=== PATIENT | female | born 1955 | race Caucasian/White ===

== ENCOUNTER 2022-09-26 11:51 | Inpatient (IN) ==
[2022-09-26] MEDS ORDERED: ONDANSETRON INJ 2 MG/ML 2 ML VIAL IV STA (13:09)
[2022-09-26] MEDS ORDERED: MoRPHine SULFATE 4 MG/ML 1 ML CARP\\VIAL IV STA (13:09)
--- NOTE | 2022-09-26 13:17 | Emergency Department Note ---
Impression & Plan Back pain ADMIT ED Provider Note HPI: The patient is a 67-year-old female who presents emergency department chief complaint of back pain and right lower extremity weakness and pain. Patient states that this has been a chronic issue for her, patient states that she was here in the ED last week, she received pain medication and felt better, she was ultimately discharged home but she states when her pain medication wore off she again felt fairly severe stabbing pains in the right lower extremity mostly in the right buttocks and right posterior leg. On arrival here to the ED the patient is hemodynamically stable but she is very anxious appearing, she states that the pain today has been "severe". Patient denies any new sensory deficits in lower extremities, denies any urinary incontinence or retention, denies any recent fevers. ROS: - Per HPI Differential Diagnosis: Acute on chronic right lower back pain with radiculopathy, spinal stenosis, cauda equina syndrome, amongst other potential pathologies. *Outpatient medications and allergy history reviewed. *Pertinent external medical records reviewed. PE: General: Alert, anxious appearing HEENT: Normocephalic, trachea midline Eyes: Extraocular eye movement is intact, no scleral erythema Pulmonary: Clear to auscultation bilaterally, no wheezing Cardio: Regular rate and rhythm GI: Abdomen is soft to palpation : No suprapubic tenderness MSK: No evidence of trauma or malformation of the extremities, no edema Skin: No evidence of rash Neuro: Alert, dorsiflexion and plantarflexion intact in right lower extremity 5/5, chronic foot drop noted of the left lower extremity Psychiatric: Cooperative traffic monitor specialist: (As interpreted by myself): - An order was placed for continuous cardiac monitoring - Patient was noted to be in sinus rhythm with a rate of 85 Interventions provided in ED: -IV morphine, IV Zofran Medical Decision Making: Shortly after the patient arrived IV was established and lab work ordered. I did review CT imaging from this past week when the patient was in the ER and this did not show any bony abnormality. Patient was given IV morphine and IV Zofran for symptoms. Lab work shows mild leukopenia 4.36, hemoglobin is normal, platelet count is normal, CMP does not show any critical findings. Patient states that her pain is improved on my reassessment, she does not have any critical neurologic findings in the right lower extremity but states that her pain is getting more severe. She states that this is inhibiting her ability to function at home and she is having difficulty with ambulation. I did recommend MRI imaging however the patient has a spinal stimulator. Initially it was thought that if the patient had her remote to turn off the stimulator she could receive an MRI, patient was able to obtain the remote however when re viewed with MRI her device is not compatible with our MRI machine. Given her ambulatory dysfunction she did require admission to the hospital, I discussed her case with the on-call hospitalist, Dr.'s Delgado, and the patient was placed for admission in stable condition. Patient stated that she would be agreeable for PT / OT and possibly placement to inpatient rehab. Consultants: Hospitalist, Dr. German Disposition discussion held by myself with: Patient and Friend at bedside Diagnosis: 1. Acute on chronic right lower back pain with sciatica 2. Ambulatory dysfunction Disposition: Admission Hang Mckeon DO Emergency Medicine Past Med/Surg History Medical History Chronic back pain Hypertension Surgical History History of lumbar surgery S/P insertion of spinal cord stimulator Social History Smoking Status: Never smoker Preferred Language: Swedish Current Living Situation: Alone current occupational status: retired Feels Safe at Home: Yes Allergies Allergies Allergy/AdvReac Type Severity Reaction Status Date / Time acetaminophen [From Percocet] AdvReac Mild Nausea Verified 09/26/22 13:54 oxycodone [From Percocet] AdvReac Mild Nausea Verified 09/26/22 13:54 Home Meds Home Medications Medication Instructions Recorded Confirmed lorazepam 0.5 mg tablet 0.5 mg PO DAILY PRN ANXIETY 09/26/22 09/26/22 metoprolol succinate 25 mg 25 mg PO DAILY 09/26/22 09/26/22 tablet,extended release 24 hr Previous Rx's Medication Instructions Recorded cyclobenzaprine 10 mg tablet 10 mg PO TID PRN muscle spasm #20 09/22/22 tabs hydrocodone 5 mg-acetaminophen 325 1 - 2 tab PO Q6H PRN pain #15 tabs 09/22/22 mg tablet Results & Data (ED) Vital Signs Vital Signs - 24 hr 09/26/22 11:54 09/26/22 14:24 09/26/22 14:37 Temperature 37.2 C Temperature Source Temporal Artery Scan Pulse Rate 88 86 Pulse Rate [Apical] 81 Pulse Rhythm [Apical] Regular Pulse Strength [Apical] Respiratory Rate 20 18 Respiratory Effort / Characteristics Non-Labored Spontaneous Non-Labored Spontaneous Respiratory Depth Normal Normal Respiratory Pattern Regular Blood Pressure 120/80 Blood Pressure [Right Arm] 143/77 H Blood Pressure Mean 93 Blood Pressure Mean [Right Arm] 99 Blood Pressure Position [Right Arm] Lying Pulse Oximetry 96 93 Oxygen Delivery Method Room Air Room Air Sepsis Recent Fever Within 48 Hours No Sepsis New/Unexplained Change in Mental Status N/A Sepsis Action Taken by Nursing No Action Required 09/26/22 15:27 09/26/22 17:08 Temperature 36.7 C Temperature Source Oral Pulse Rate Pulse Rate [Apical] 80 90 Pulse Rhythm [Apical] Regular Pulse Strength [Apical] Normal Respiratory Rate 16 18 Respiratory Effort / Characteristics Non-Labored Spontaneous Non-Labored Respiratory Depth Normal Normal Respiratory Pattern Regular Blood Pressure Blood Pressure [Right Arm] 115/75 152/86 H Blood Pressure Mean Blood Pressure Mean [Right Arm] 88 108 Blood Pressure Position [Right Arm] Pulse Oximetry 92 94 Oxygen Delivery Method Room Air Room Air Sepsis Recent Fever Within 48 Hours Sepsis New/Unexplained Change in Mental Status Sepsis Action Taken by Nursing Laboratory Data 09/26/22 14:02 09/26/22 14:02 Lab Results 09/26/22 09/26/22 09/26/22 Range/Units 14:02 14:02 14:02 WBC 4.36 L (4.8-10.8) K/ul RBC 5.08 (4.20-5.40) M/uL Hgb 14.6 (12.0-16.0) g/dl Hct 43.9 (37.0-47.0) % MCV 86.4 (80.0-100.0) fL MCH 28.7 (25.0-34.0) pg MCHC 33.3 (32.0-36.0) g/dL RDW Std Deviation 43.7 (36.4-46.3) fL RDW Coeff of Bradley 13.6 (11.5-14.5) % Plt Count 132 (130-400) K/uL MPV 10.7 (9.4-12.4) fL Immature Gran % (Auto) 0.2 % Neut % (Auto) 77.1 % Lymph % (Auto) 15.4 % [place] % (Auto) 7.1 % Eos % (Auto) 0.0 % Baso % (Auto) 0.2 % Neut # (Auto) 3.36 (1.40-6.50) K/uL Lymph # (Auto) 0.67 L (1.2-3.4) K/uL [place] # (Auto) 0.31 (0.11-0.59) K/uL Eos # (Auto) 0.00 (0-0.50) K/uL Baso # (Auto) 0.01 (0-0.2) K/uL Immature Gran # (Auto) 0.01 (0.01-0.20) K/uL ESR 35 H (0-30) mm/hr Sodium 134 L (136-145) mmol/L Potassium 4.1 (3.5-5.1) mmol/L Chloride 101 (98-107) mmol/L Carbon Dioxide 27 (21-32) mmol/L Anion Gap 6 (3-11) BUN 13 (6-23) mg/dl Creatinine 0.93 (0.6-1.2) mg/dl Est Cr Clr Drug Dosing 70.8 ml/min Est GFR ( Amer) 73.2 ml/min Est GFR (Non-Af Amer) 63.1 ml/min BUN/Creatinine Ratio 14.0 (10-20) Glucose 96 (70-99(Fasting)) mg/dl Calcium 9.8 (8.6-10.3) mg/dl Total Bilirubin 0.5 (0.2-1.0) mg/dl AST 38 (13-39) U/L ALT 31 (7-52) U/L Alkaline Phosphatase 46 (34-104) U/L Total Protein 6.8 (6.0-8.3) gm/dl Albumin 3.7 (3.4-5.0) gm/dl Globulin 3.1 (2.5-4.0) gm/dl Albumin/Globulin Ratio 1.2 (0.9-2) Administered Medications Cyclobenzaprine HCl (Cyclobenzaprine Hcl 10 Mg Tab) 10 mg PO TID PRN PRN Reason: muscle spasm Stop: 10/26/22 15:47 Last Admin: 09/26/22 17:10 Dose: 10 mg Documented By: MODESTO Discontinued Medications Lorazepam (Lorazepam 2 Mg/1 Ml Vial) 0.5 mg IV NOW STA Stop: 09/26/22 14:57 Last Admin: 09/26/22 15:24 Dose: 0.5 mg Documented By: PING Morphine Sulfate (Morphine Sulfate 4 Mg/Ml 1 Ml Carp\\Vial) 4 mg IV NOW STA Stop: 09/26/22 13:10 Last Admin: 09/26/22 13:35 Dose: 4 mg Documented By: MADISYN Ondansetron HCl (Ondansetron Inj 2 Mg/Ml 2 Ml Vial) 4 mg IV NOW STA Stop: 09/26/22 13:10 Last Admin: 09/26/22 13:35 Dose: 4 mg Documented By: MADISYN Discharge Plan Visit Data Chief Complaint: Leg Injury/Pain Stated Complaint: LEG PAIN ED Provider: Hang Mckeon Discharge Problem: Back pain Forms Stand Alone Forms: [facility] Prescriptions Prescriptions: No Action cyclobenzaprine 10 mg tablet 10 mg PO TID PRN (Reason: muscle spasm) Qty: 20 0RF hydrocodone-acetaminophen 5-325 mg tablet 1 - 2 tab PO Q6H PRN (Reason: pain) Qty: 15 0RF Rx Instructions: Initial Treatment lorazepam 0.5 mg tablet 0.5 mg PO DAILY PRN (Reason: ANXIETY) metoprolol succinate 25 mg tablet extended release 24 hr 25 mg PO DAILY Referrals Referrals: Uday Schrader MD [Primary Care Provider] -
[2022-09-26 14:19] LABS: Basophils # (auto) 0.01 K/uL (0-0.2); Basophils % (auto) 0.2 %; Hematocrit (blood only) 43.9 % (37.0-47.0); Hemoglobin 14.6 g/dl (12.0-16.0); Immature Granulocytes # (auto) 0.01 K/uL (0.01-0.20); Immature Granulocytes % (auto) 0.2 %; Lymphocytes # (auto) 0.67 K/uL (1.2-3.4); Lymphocytes % (auto) 15.4 %; Mean Corpuscular Hemoglobin 28.7 pg (25.0-34.0); Mean Corpuscular Hgb Conc 33.3 g/dL (32.0-36.0); Mean Corpuscular Volume 86.4 fL (80.0-100.0); Mean Platelet Volume 10.7 fL (9.4-12.4); Monocytes # (auto) 0.31 K/uL (0.11-0.59); Monocytes % (auto) 7.1 %; Neutrophils # (auto) 3.36 K/uL (1.40-6.50); Neutrophils % (auto) 77.1 %; Platelet Count 132 K/uL (130-400); RDW Coefficient of Variation 13.6 % (11.5-14.5); RDW Standard Deviation 43.7 fL (36.4-46.3); Red Blood Count 5.08 M/uL (4.20-5.40); White Blood Count 4.36 K/ul (4.8-10.8)
[2022-09-26 14:41] LABS: Albumin Globulin Ratio 1.2 (0.9-2); Albumin Level 3.7 gm/dl (3.4-5.0); Bilirubin,Total 0.5 mg/dl (0.2-1.0); Calcium 9.8 mg/dl (8.6-10.3); Creatinine Clr Calc Pharmacy 70.8 ml/min; Est GFR (African American) 73.2 ml/min; Est GFR (Non-African American) 63.1 ml/min; Globulin 3.1 gm/dl (2.5-4.0); Potassium 4.1 mmol/L (3.5-5.1); Total Protein 6.8 gm/dl (6.0-8.3)
[2022-09-26] MEDS ORDERED: LORazepam 2 MG/1 ML VIAL IV STA (14:56)
[2022-09-26] MEDS ORDERED: LORazepam 0.5 MG TAB PO PRN (15:48)
[2022-09-26] MEDS ORDERED: POLYETHYLENE (MIRALAX) 17 GM PACK PO PRN (15:50)
--- NOTE | 2022-09-26 15:53 | History & Physical Report ---
Date of Service September 26, 2022 Assessment & Plan (1) Chronic back pain: Plan: 67 yo female with acute exacerbation of chornic back pain. No trauma. Patient has spinal cord stimulator, not compatible with MRI> CT back spine shows lumbar spine is has severe stenosis Pain is radiating down her legs. consult ortho spine for further input. Patient had one elevated temperature, will obtain cultures and inflammatory markers (2) Chronic radicular low back pain: Plan: as above (3) Hypertension: Plan: resume home meds Plan dvt: lovenox History of Present Illness Chief Complaint: back pain Primary Care Provider: Uday Schrader MD 67 yo female with PMH of Hypertension, reports having multiple lumbar spine surgeries in the past. She reports to the ED with a 1 week history of bilateral leg pain, but she reports her pain is mainly on the right side and goes to her foot. She denies any recent trauma and the pain began while she was sitting in a chair. Pain is sharp,. She has had pain like this in the past, but she reports she has never had this last this long. Usually this pain subsides within a day or two. Patient has had 2 earlier ER visit prior to this hospital bed. She reports she also has had 2 falls within this past year. She had a spinal cord stimulator implanted years ago in [facility]. Allergies Allergy/AdvReac Type Severity Reaction Status Date / Time acetaminophen [From Percocet] AdvReac Mild Nausea Verified 09/26/22 13:54 oxycodone [From Percocet] AdvReac Mild Nausea Verified 09/26/22 13:54 Home Medications Medication Instructions Recorded Confirmed Type cyclobenzaprine 10 mg tablet 10 mg PO TID PRN muscle spasm #20 09/22/22 09/26/22 Rx tabs hydrocodone 5 mg-acetaminophen 325 1 - 2 tab PO Q6H PRN pain #15 tabs 09/22/22 09/26/22 Rx mg tablet lorazepam 0.5 mg tablet 0.5 mg PO DAILY PRN ANXIETY 09/26/22 09/26/22 History metoprolol succinate 25 mg 25 mg PO DAILY 09/26/22 09/26/22 History tablet,extended release 24 hr Past Med/Surg History Medical History Chronic back pain Hypertension Surgical History History of lumbar surgery S/P insertion of spinal cord stimulator Social History Smoking Status: Never smoker Hx Alcohol Use: Yes Alcohol type: hard liquor Hx Substance Use: No Preferred Language: Libyan Communication Ability: Effective Lighting Fixture Installer Required: No Beliefs That Will Affect Care: None Current Living Situation: Alone current occupational status: retired Feels Safe at Home: Yes Safety Concerns: Feels Safe At This Time Assistive Devices: Cane and Glasses Review of Systems Constitutional: no fever and no body aches Eyes: no blind spots Ear, Nose, Mouth, Throat: no ear pain and no tinnitus Respiratory: no cough Cardiovascular: no chest pain Gastrointestinal: no abdominal pain and no early satiety Genitourinary: no dysuria Musculoskeletal: + back pain Integumentary: no rash Neurologic: no gait abnormality Psychiatric: no behavioral changes Endocrine: no fatigue Hematologic / Lymphatic: no easy bleeding Allergy / Immunological: no GI upset with certain foods Physical Exam Constitutional: WD/WN, vitals as above Eyes: PERRL, conjunctivae normal, anicteric sclerae ENMT: external ear and nose normal, oropharynx normal Neck: trachea midline, no thyromegaly Respiratory: normal respiratory effort, lungs clear to auscultation Cardiovascular: RRR, no murmur, no edema Gastrointestinal (Abdomen): normal bowel sounds, soft, nontender, no hepatosplenomegaly Musculoskeletal: no cyanosis or clubbing, extremities motor strength 5/5 Skin: no rashes, warm and dry Neurologic: PERRL, EOMI, accommodation nl, no face palsy, no dysarthria Psychiatric: A+Ox3, euthymic affect Lymphatic: no cervical or axillary lymphadenopathy Results & Data Results & Data Vital Signs (Past 12 Hours) Vital Signs Temp Pulse Pulse Resp BP BP Pulse Ox 09/26/22 15:27 36.7 C 80 16 115/75 92 09/26/22 14:37 86 09/26/22 14:24 81 18 143/77 H 93 09/26/22 11:54 37.2 C 88 20 120/80 96 O2 Del Method 09/26/22 15:27 Room Air 09/26/22 14:37 09/26/22 14:24 Room Air 09/26/22 11:54 Room Air PG Care Time/CCT Total # of Minutes Spent Total Time Spent with Patient: Total time spent is greater than 50% in coordination of care (as documented) at patient's floor/unit and/or counseling patient: Coding Level of Care Code 02685 INT INP/OBS CARE 3/75MIN Diagnoses Chronic back pain M54.9; G89.29 Chronic radicular low back pain M54.16; G89.29 Hypertension I10
[2022-09-26] MEDS: CYCLOBENZAPRINE HCL 10 MG TAB PO PRN (17:10)
[2022-09-26] MEDS: ENOXAPARIN INJ 40 MG/0.4 ML SYR SQ SCH (17:41)
[2022-09-26] MEDS: ACETAMINOPHEN 325 MG TAB PO SCH ×2 (17:41→23:03)
[2022-09-26 17:42] LABS: Appearance Urine Cloudy (Clear); Bacteria Urine Automated Negative (Negative); Bilirubin Urine Negative (Negative); Blood Urine Negative (Negative); Color Urine Dark Yellow; Epithelial Cell Urine Auto >30 /lpf (0-5); Glucose Urine UA Negative (Negative); Ketones Urine 2+ (Negative); Leukocyte Esterase Urine Negative (Negative); Nitrite Urine Negative (Negative); Protein Urine 1+ (Negative); Specific Gravity Urine 1.021 (1.000-1.030); Urobilinogen Urine Negative (Negative); WBC Urine Automated >30 /hpf (0-5); pH Urine 5.5 (4.5-7.5)
[2022-09-26 17:53] LABS: RBC Urine Automated 0-4 /hpf (0-4)
[2022-09-26 19:46] LABS: C Reactive Protein 3.23 mg/dl (0-0.5)
[2022-09-26] MEDS: HYDROCODONE/ACETAMOPHEN 5/325MG TAB PO PRN (23:03)
[2022-09-27] MEDS: ACETAMINOPHEN 325 MG TAB PO SCH ×4 (05:09→19:32)
[2022-09-27] MEDS: METOPROLOL SUCC 25MG EXT REL TAB PO SCH (08:21)
--- NOTE | 2022-09-27 10:15 | Orthopedic Consultation ---
Date of Consultation September 27, 2022 Assessment & Plan (1) Chronic radicular low back pain: Assessment bilateral leg pain. Plan at this time she is unable to have an MRI with the current spinal cord stimulator placed. I would obtain basic x-rays to assess alignment. We will discuss possible CT myelogram for further anatomic detail regarding the neural structures of the lumbar spine. We will also consider consultation with [employer] for reprogramming of her stimulator. History of Present Illness Reason for Consultation: Bilateral leg pain Attending Physician: Kieran German History of Present Illness This is a 59-year-old female presents to the emergency room with a week of significant bilateral leg pain right greater than left. She states it begins in the bilateral thighs extends down the leg into her feet. She has a history of undergoing 3 lumbar surgeries the last of which was in 2007. She was told she was no longer a surgical candidate after this procedure. Gender went placement of a dorsal column stimulator approximately 3 years ago. She states she gets intermittent limited relief from this. It is a [employer]. She is unable to have an MRI secondary to this stimulator. She does use a cane to ambulate. She lives alone. She denies any loss of bowel or bladder function. She has had a few falls secondary to leg weakness. Allergies Allergy/AdvReac Type Severity Reaction Status Date / Time acetaminophen [From Percocet] AdvReac Mild Nausea Verified 09/26/22 13:54 oxycodone [From Percocet] AdvReac Mild Nausea Verified 09/26/22 13:54 Home Medications Medication Instructions Recorded Confirmed Type cyclobenzaprine 10 mg tablet 10 mg PO TID PRN muscle spasm #20 09/22/22 09/26/22 Rx tabs hydrocodone 5 mg-acetaminophen 325 1 - 2 tab PO Q6H PRN pain #15 tabs 09/22/22 09/26/22 Rx mg tablet lorazepam 0.5 mg tablet 0.5 mg PO DAILY PRN ANXIETY 09/26/22 09/26/22 History metoprolol succinate 25 mg 25 mg PO DAILY 09/26/22 09/26/22 History tablet,extended release 24 hr Patient History Medical History Chronic back pain Hypertension Surgical History History of lumbar surgery S/P insertion of spinal cord stimulator Social History Smoking Status: Never smoker Hx Alcohol Use: Yes Alcohol type: hard liquor Hx Substance Use: No Preferred Language: Togolese Corporate Travel Counselor Required: No Beliefs That Will Affect Care: None Current Living Situation: Alone current occupational status: retired Feels Safe at Home: Yes Safety Concerns: Feels Safe At This Time Assistive Devices: Cane Physical Exam Physical Exam: On exam she is seen but bed. She is cooperative. She exhibits reasonable plus 5 out of 5 plantarflexion dorsiflexion quadriceps on the right. She is an established foot drop on the left but quadriceps are functional. Sensory is symmetric and intact. Deep tendon reflexes diminished. No tension signs. Negative logroll. Results & Data Vital Signs (Past 12 Hours) Vital Signs Temp Pulse Resp BP Pulse Ox O2 Del Method 09/27/22 08:03 37.3 C 74 18 110/74 91 Room Air
[2022-09-27] MEDS: HYDROCODONE/ACETAMOPHEN 5/325MG TAB PO PRN (11:42)
--- NOTE | 2022-09-27 11:50 | XRay Report ---
XR thoracic spine 3V routine CLINICAL HISTORY: back pain TECHNIQUE: 3 views of the thoracic spine were obtained. Comparison: None available at the time of this dictation. FINDINGS: Spinal stimulator is seen. Degenerative changes are seen in the thoracic spine. Alignment appears unr emarkable. Prevertebral soft tissues are within normal limits. IMPRESSION: Degenerative changes as above without acute fracture or subluxation. ACT 112: Negative or not required by law. Electronically signed by: Pedro Lombardi M.D. 09/27/2022 11:49 AM
--- NOTE | 2022-09-27 11:51 | XRay Report ---
LUMBAR SPINE 7 views with flexion and extension HISTORY: Back pain. COMPARISON: Lumbar spine CT 09/22/2022. FINDINGS: There is no fracture. No subluxation. The visualized sacrum is intact. The L3-L4 and L4-L5 disc spaces are narrowed and likely partially fused. Suggestion of prior laminectomy at these levels . Mild disc space narrowing at L5-S1. Straightening of the lumbar spine. Alignment remains intact thr oughout flexion and extension. Partially visualized spinal stimulator leads appear intact. IMPRESSION: 1. No fracture or subluxation within the lumbar spine. 2. The alignment remains intact throughout flexion and extension. 3. Postoperative and degenerative changes as described above. ACT 112: Negative or not required by law. Electronically signed by: Tyron Gaspar M.D. 09/27/2022 11:50 AM
[2022-09-27] MEDS: MoRPHine SULFATE 2 MG/ML CARP IV PRN ×2 (15:09→20:55)
[2022-09-27] MEDS: ENOXAPARIN INJ 40 MG/0.4 ML SYR SQ SCH (15:09)
[2022-09-27] MEDS ORDERED: MoRPHine SULFATE 4 MG/ML 1 ML CARP\\VIAL IV STA (17:12)
[2022-09-27] MEDS: CYCLOBENZAPRINE HCL 10 MG TAB PO PRN (19:33)
[2022-09-27] MEDS: oxyCODONE HCL 10 MG TABCR (OxyCONTIN) PO SCH (20:07)
--- NOTE | 2022-09-27 22:34 | Hospitalist Progress Note ---
Date of Service September 27, 2022 Assessment & Plan (1) Chronic back pain: Plan: 67 yo female with acute exacerbation of chornic back pain. No trauma. PAtient has been afebrile today. Patient has spinal cord stimulator, not compatible with MRI> CT back spine shows lumbar spine is has severe stenosis Pain is radiating down her legs. consult ortho spine: ordered repeat x ray of spine. WIll monitor. ordered acetaminophen scheduled and ordered oxycontin extended release. (2) Chronic radicular low back pain: Plan: as above (3) Hypertension: Plan: resumed home meds. BP at goal Plan DVT: lovenox Admission and Anticipated Discharge Date Admission Date: September 26, 2022 Subjective Patient reports worsening back pain. Review of Systems Review of Systems: All systems reviewed & are unremarkable except as noted in HPI & below Physical Exam Constitutional: WD/WN, vitals as above Eyes: PERRL, conjunctivae normal, anicteric sclerae ENMT: external ear and nose normal, oropharynx normal Neck: trachea midline, no thyromegaly Respiratory: normal respiratory effort, lungs clear to auscultation Cardiovascular: RRR, no murmur, no edema Gastrointestinal (Abdomen): normal bowel sounds, soft, nontender, no hepatosplenomegaly Musculoskeletal: no cyanosis or clubbing, extremities motor strength 5/5 Skin: no rashes, warm and dry Neurologic: PERRL, EOMI, accommodation nl, no face palsy, no dysarthria Psychiatric: A+Ox3, euthymic affect Lymphatic: no cervical or axillary lymphadenopathy Results & Data Results & Data Vital Signs (Past 12 Hours) Vital Signs Temp Pulse Pulse Resp BP Pulse Ox O2 Del Method 09/27/22 20:52 37.5 C 84 18 116/75 94 Room Air 09/27/22 16:04 37.6 C 77 19 102/69 94 Room Air PG Care Time/CCT Total # of Minutes Spent Total Time Spent with Patient: Total time spent is greater than 50% in coordination of care (as documented) at patient's floor/unit and/or counseling patient: Coding Level of Care Code 86245 SUB INP/OBS CARE 2/35MIN Diagnoses Chronic back pain M54.9; G89.29 Chronic radicular low back pain M54.16; G89.29 Hypertension I10
[2022-09-28] MEDS: oxyCODONE HCL 10 MG TABCR (OxyCONTIN) PO SCH ×2 (06:28→20:44)
[2022-09-28] MEDS: METOPROLOL SUCC 25MG EXT REL TAB PO SCH ×2 (08:27→11:44)
[2022-09-28] MEDS: ACETAMINOPHEN 325 MG TAB PO SCH ×4 (08:27→20:44)
--- NOTE | 2022-09-28 08:27 | Orthopedic Progress Note ---
Date of Service September 28, 2022 Assessment & Plan (1) Chronic radicular low back pain: Plan: At this time I have discussed with her an evaluation with the [employer] spinal cord stimulator rep. He has been notified of her presence and will try to arrange time to see her while she is in the hospital. In light of her decline I am also going to move forward with a CT myelogram of the lumbar spine. We will make further conditions after review of the scans. I will be out of town for the next 5 days. Admission and Anticipated Discharge Date Admission Date: September 26, 2022 Subjective Patient continues to complaining of significant severe bilateral leg pain. She states she is ambulating to the bathroom on her own. Physical Exam Physical Exam: Patient is in obvious distress. Her neurologic exam is essentially unchanged. Results & Data Vital Signs (Past 12 Hours) Vital Signs Temp Pulse Resp BP Pulse Ox O2 Del Method 09/28/22 07:44 38.2 C H 84 18 110/69 93 Room Air 09/27/22 20:52 37.5 C 84 18 116/75 94 Room Air
[2022-09-28] MEDS: MoRPHine SULFATE 2 MG/ML CARP IV PRN ×2 (08:42→13:12)
[2022-09-28 10:22] LABS: Basophils # (auto) 0.01 K/uL (0-0.2); Basophils % (auto) 0.2 %; Hematocrit (blood only) 43.1 % (37.0-47.0); Hemoglobin 14.3 g/dl (12.0-16.0); Immature Granulocytes # (auto) 0.02 K/uL (0.01-0.20); Immature Granulocytes % (auto) 0.4 %; Lymphocytes # (auto) 0.81 K/uL (1.2-3.4); Lymphocytes % (auto) 15.7 %; Mean Corpuscular Hemoglobin 28.8 pg (25.0-34.0); Mean Corpuscular Hgb Conc 33.2 g/dL (32.0-36.0); Mean Corpuscular Volume 86.7 fL (80.0-100.0); Mean Platelet Volume 10.8 fL (9.4-12.4); Monocytes # (auto) 0.28 K/uL (0.11-0.59); Monocytes % (auto) 5.4 %; Neutrophils # (auto) 4.05 K/uL (1.40-6.50); Neutrophils % (auto) 78.3 %; Platelet Count 138 K/uL (130-400); RDW Coefficient of Variation 13.2 % (11.5-14.5); RDW Standard Deviation 41.5 fL (36.4-46.3); Red Blood Count 4.97 M/uL (4.20-5.40); White Blood Count 5.17 K/ul (4.8-10.8)
[2022-09-28 11:08] LABS: Albumin Globulin Ratio 1.3 (0.9-2); Albumin Level 3.8 gm/dl (3.4-5.0); BUN Creatinine Ratio 16.9 (10-20); Bilirubin,Total 0.5 mg/dl (0.2-1.0); C Reactive Protein 5.94 mg/dl (0-0.5); Calcium 9.5 mg/dl (8.6-10.3); Est GFR (African American) 77.2 ml/min; Est GFR (Non-African American) 66.6 ml/min; Potassium 3.7 mmol/L (3.5-5.1); Total Protein 6.8 gm/dl (6.0-8.3)
[2022-09-28 11:22] LABS: Adenovirus PCR Not Detected (NotDetected); Bordetella parapertussis PCR Not Detected (NotDetected); Bordetella pertussis PCR Not Detected (NotDetected); Chlamydia pneumoniae PCR Not Detected (NotDetected); Coronavirus 229E PCR Not Detected (NotDetected); Coronavirus HKU1 PCR Not Detected (NotDetected); Coronavirus NL63 PCR Not Detected (NotDetected); Coronavirus OC43PCR Not Detected (NotDetected); Human Metapneumovirus PCR Not Detected (NotDetected); Influenza A PCR Not Detected (NotDetected); Influenza B PCR Not Detected (NotDetected); Mycoplasma pneumoniae PCR Not Detected (NotDetected); Parainfluenza Virus 1 PCR Not Detected (NotDetected); Parainfluenza Virus 2 PCR Not Detected (NotDetected); Parainfluenza Virus 3 PCR Not Detected (NotDetected); Parainfluenza Virus 4 PCR Not Detected (NotDetected); Respiratory Syncytial VirusPCR Not Detected (NotDetected); Rhinovirus/Enterovirus PCR Not Detected (NotDetected)
[2022-09-28] MEDS: DOCUSATE SODIUM/SENNA 50/8.6MG TAB PO SCH (11:43)
--- NOTE | 2022-09-28 11:47 | Hospitalist Progress Note ---
Date of Service September 28, 2022 Assessment & Plan (1) Chronic back pain: Plan: 67 yo female with acute exacerbation of chronic back pain. No trauma, pain started when patient was watching TV on 09/19/22 Patient reports pain is better controlled on this new pain regimen: oxycontin 10 mg PO BID, continue acetaminophen 650 mg PO QID Patient has spinal cord stimulator, not compatible with MRI CT back spine shows lumbar spine is has severe stenosis Patient has a spinal cord stimuator, [employer] is aware and will see her Pain is radiating down her legs. consult ortho spine: awaiting myelogram Falls at home could be explained by COVID. (2) Chronic radicular low back pain: Plan: as above (3) Hypertension: Plan: resumed home meds. BP at goal (4) COVID-19: Plan: Patient with COVID 19. Diagnosed on 09/28 BIOFIRE due to elevated crp, negative procal and fevers. will monitor. no need for dexamethasone. Plan DVT: lovenox Ordered PT/OT OOB to chair Admission and Anticipated Discharge Date Admission Date: September 26, 2022 Subjective Patient reports her pain is slightly better controlled with the new pain regimen. Patient states she has not had a BM today. Patient denies any cough or general malaise. Review of Systems Review of Systems: All systems reviewed & are unremarkable except as noted in HPI & below Physical Exam Constitutional: WD/WN, vitals as above Eyes: PERRL, conjunctivae normal, anicteric sclerae ENMT: external ear and nose normal, oropharynx normal Neck: trachea midline, no thyromegaly Respiratory: normal respiratory effort, lungs clear to auscultation Cardiovascular: RRR, no murmur, no edema Gastrointestinal (Abdomen): normal bowel sounds, soft, nontender, no hepatosplenomegaly Musculoskeletal: no cyanosis or clubbing, extremities motor strength 5/5 Skin: no rashes, warm and dry Neurologic: PERRL, EOMI, accommodation nl, no face palsy, no dysarthria Psychiatric: A+Ox3, euthymic affect Lymphatic: no cervical or axillary lymphadenopathy Results & Data Results & Data Vital Signs (Past 12 Hours) Vital Signs Temp Pulse Resp BP Pulse Ox O2 Del Method 09/28/22 07:44 38.2 C H 84 18 110/69 93 Room Air PG Care Time/CCT Total # of Minutes Spent Total Time Spent with Patient: Total time spent is greater than 50% in coordination of care (as documented) at patient's floor/unit and/or counseling patient: Coding Level of Care Code 82599 SUB INP/OBS CARE 3/50MIN Diagnoses Chronic back pain M54.9; G89.29 Chronic radicular low back pain M54.16; G89.29 Hypertension I10 COVID-19 U07.1
[2022-09-28 12:14] LABS: Coronavirus CoV-2 (COVID19)PCR DETECTED (NotDetected)
[2022-09-28] MEDS: POLYETHYLENE (MIRALAX) 17 GM PACK PO SCH ×2 (13:12→20:45)
--- NOTE | 2022-09-28 13:19 | XRay Report ---
XR chest 2V PA/lateral HISTORY: fever COMPARISON: None. FINDINGS: No pneumothorax. No pleural effusions. Spinal stimulator leads are noted. Small patchy left basilar densities. There is mild central pulmonary vascular congestion without overt edema. The hear t is normal in size. There is increased density overlying the right hilum. This is not confirmed on t he lateral view. IMPRESSION: 1. Small patchy density left lung base which may represent atelectasis or pneumonia. 2. Increased density overlying the right hilum. This is indeterminate. Follow-up chest CT recommended for further evaluation. 3. Mild central pulmonary vascular congestion without overt edema. ACT 112: Negative or not required by law. Electronically signed by: Tyron Gaspar M.D. 09/28/2022 1:18 PM
[2022-09-28 16:26] LABS: Appearance Urine Cloudy (Clear); Bacteria Urine Automated Negative (Negative); Bilirubin Urine Negative (Negative); Blood Urine Negative (Negative); Color Urine Dark Yellow; Epithelial Cell Urine Auto >30 /lpf (0-5); Glucose Urine UA Negative (Negative); Ketones Urine 1+ (Negative); Leukocyte Esterase Urine Negative (Negative); Nitrite Urine Negative (Negative); Protein Urine 1+ (Negative); Specific Gravity Urine 1.025 (1.000-1.030); Urobilinogen Urine Negative (Negative); pH Urine 5.5 (4.5-7.5)
[2022-09-29] MEDS: ONDANSETRON INJ 2 MG/ML 2 ML VIAL IV PRN ×2 (05:46→16:48)
[2022-09-29] MEDS: METOPROLOL SUCC 25MG EXT REL TAB PO SCH (08:02)
[2022-09-29] MEDS: POLYETHYLENE (MIRALAX) 17 GM PACK PO SCH ×2 (08:02→20:36)
[2022-09-29] MEDS: ACETAMINOPHEN 325 MG TAB PO SCH ×4 (08:02→20:35)
[2022-09-29] MEDS: DOCUSATE SODIUM/SENNA 50/8.6MG TAB PO SCH (08:02)
--- NOTE | 2022-09-29 08:27 | Hospitalist Progress Note ---
Date of Service September 29, 2022 Assessment & Plan (1) Chronic back pain: Plan: 67 yo female with acute exacerbation of chronic back pain. No trauma, pain started when patient was watching TV on 09/19/22 Patient reports pain is better controlled on this new pain regimen: oxycontin 10 mg PO BID, continue acetaminophen 650 mg PO QID Patient has spinal cord stimulator, not compatible with MRI CT back spine shows lumbar spine has severe stenosis Patient has a spinal cord stimulator, [place] is aware and will see her Pain is radiating down her legs. consult ortho spine: ordered myelogram, interpretation by radiology shows degenerative and postoperative changes with no significant central canal stenosis with multilevel neuroforaminal narrowing. Little pain control consideration of pain management and await orthopedics final input Falls at home could be explained by COVID. (2) COVID-19: Plan: Patient with COVID 19., possible metabolic encephalopathy affecting strength and leading to falls not hypoxic but low grade temperatures Diagnosed on 09/28 BIOFIRE due to elevated crp, negative procal does not qualify for dexamethasone. (3) Hypertension: Plan: resumed home metoprolol BP at goal Plan DVT: lovenox Ordered PT/OT OOB to chair Admission and Anticipated Discharge Date Admission Date: September 26, 2022 Subjective pt still with pain, wants to limit opiates, pain is similar to previous, if surgical intervention is needed wants to stay here if possible Physical Exam Physical Exam: patient is lying flat after CT myelogram. She has no neurological deficits noted to lower extremities and while laying flat her pain is much improved. Patient's pulm exam is clear anteriorly and she is is displaying no signs of respiratory distress Results & Data Results & Data Vital Signs (Past 12 Hours) Vital Signs Temp Pulse Resp BP Pulse Ox O2 Del Method 09/29/22 07:50 100.0 F H 90 18 126/80 92 Room Air 09/28/22 20:44 Room Air PG Care Time/CCT Total # of Minutes Spent Total Time Spent with Patient: Total time spent is greater than 50% in coordination of care (as documented) at patient's floor/unit and/or counseling patient: Coding Level of Care Code 11104 SUB INP/OBS CARE 2/35MIN Diagnoses Chronic back pain M54.9; G89.29 COVID-19 U07.1 Hypertension I10
[2022-09-29] MEDS: oxyCODONE HCL 10 MG TABCR (OxyCONTIN) PO SCH ×2 (09:16→20:18)
[2022-09-29] MEDS: MoRPHine SULFATE 2 MG/ML CARP IV PRN (10:48)
--- NOTE | 2022-09-29 13:33 | Fluoroscopy Report ---
Lumbar myelogram injection INDICATION: Back pain with radiculopathy PROCEDURE: Procedure and risks were explained. Informed consent was obtained. A final timeout was com pleted. The patient was placed prone on the fluoroscopic exam table. The lower lumbar region was prep ped and draped in sterile fashion. 1% lidocaine was utilized for skin anesthesia. Utilizing fluoroscopic guidance, a 22-gauge spinal needle was advanced into the intrathecal space at the L2-3 disc space level. Approximately 12 mL of Isovue-M 200 was injected. Fluoroscopic spot images were obtained. The needle was removed and Band-Aid applied. The patient tolerated the procedure well . She will be transferred to CT for additional imaging. Total fluoroscopy time 1.3 minutes. DAP is 31.7 mcGy/m2. IMPRESSION: Lumbar myelogram injection as above. Please refer to CT report for additional information . Performed, dictated, and signed by Garcia Toledo PA-C; to be co-signed by Dr. Pedro Lombardi. Electronically signed by: Pedro Lombardi M.D. 09/30/2022 7:14 AM
--- NOTE | 2022-09-29 13:36 | CT Scan Report ---
CT lumbar post myelogram CT DOSE: 1188.69 mGy.cm CLINICAL HISTORY: 67 years-old Female with leg pain. Chronic low back pain. TECHNIQUE: Multiple axial CT images of the lumbar spine were obtained with the use of intrathecal co ntrast. Coronal and sagittal reformats were generated from the axial data set and submitted for revi ew. A dose lowering technique was utilized adhering to the principles of ALARA. COMPARISON: 09/22/2022. FINDINGS: There are 5 lumbar-type vertebral bodies segments present. The vertebral body heights appear well ma intained. No evidence of acute fracture or subluxation is appreciated. Cardiomegaly. A spinal stimul ator device is noted at the distal tip of the leads overlying the mid thoracic spine. The imaged intr a-abdominal structures are unremarkable. Atherosclerosis of the abdominal aorta. Bilateral renal sinu s cysts. No paravertebral edema. A few locules of epidural and intrathecal gas is noted at the L2-L3 level, likely postprocedural. Postoperative changes from prior posterior decompression at L3-L4. Carley neralized appearance of the bones. Conus medullaris terminates at L1. Sacral Tarlov cysts are noted. T11-12: Mild facet arthrosis. No evidence of disc bulge or central canal stenosis is seen. The neur al foramina appear patent bilaterally. T12-L1: Mild facet arthrosis. No evidence of disc bulge or central canal stenosis is seen. The neur al foramina appear patent bilaterally. L1-L2: Mild facet arthrosis. No evidence of disc bulge or central canal stenosis is seen. The neura l foramina appear patent bilaterally. L2-L3: Mild facet arthrosis with ligamentum flavum thickening and mild spondylitic spurring. Small p osterior annular disc bulge with annular fissure. Mild inferior bilateral foraminal narrowing. The ce ntral canal is patent. L3-L4: Severe intervertebral disc space narrowing with dhwi-gq-bebzovmf spondylitic spurring, ligame ntum flavum thickening with moderate facet arthrosis. Prior posterior decompression. Small posterior annular disc bulge. The central canal is patent. Mild right with jkpl-te-keuixzmn left foraminal narr owing. L4-L5: Severe intervertebral disc space narrowing with mamr-zs-xikoryrc spondylitic spurring, ligame ntum flavum thickening with nogsttct-ig-yhjyak facet arthrosis. Small posterior disc osteophyte compl ex. Flattening of the ventral thecal sac without significant central canal stenosis. Mild bilateral f oraminal narrowing, left greater than right. L5-S1: Mild intervertebral disc space narrowing with spondylotic spurring. Chondrocalcinosis of the disc space. Ligamentum flavum thickening with severe facet arthrosis. Small central/left paracentral disc osteophyte complex measuring up to 1.6 cm transversely. There is abutment without significant di splacement of the left S1 nerve root. Moderate left lateral recess narrowing. Mild epidural lipomatos is. No significant central canal stenosis. Infm-fw-nwpkhwjs bilateral foraminal narrowing. IMPRESSION: 1. No acute fracture or subluxation. 2. Degenerative and postoperative changes as above. 3. No significant central canal stenosis. 4. Multilevel neural foraminal narrowing. 5. Small Tarlov cysts of the sacrum. ACT 112: Negative or not required by law. The above report was generated using voice recognition software. It may contain grammatical, syntax o r spelling errors. Dictated: 09/29/2022 1:04 PM Transcribed: 09/29/2022 1:23 PM Evan [id number] [email or web address] Electronically signed by: Margarito Hill M.D. 09/29/2022 1:34 PM
[2022-09-29] MEDS ORDERED: predniSONE 20 MG TAB PO STA (15:33)
[2022-09-30] MEDS: oxyCODONE HCL 10 MG TABCR (OxyCONTIN) PO SCH ×2 (06:43→19:21)
[2022-09-30 07:22] LABS: Hematocrit (blood only) 42.7 % (37.0-47.0); Hemoglobin 14.4 g/dl (12.0-16.0); Mean Corpuscular Hemoglobin 28.5 pg (25.0-34.0); Mean Corpuscular Hgb Conc 33.7 g/dL (32.0-36.0); Mean Corpuscular Volume 84.4 fL (80.0-100.0); Mean Platelet Volume 10.4 fL (9.4-12.4); Platelet Count 170 K/uL (130-400); RDW Coefficient of Variation 13.2 % (11.5-14.5); RDW Standard Deviation 40.8 fL (36.4-46.3); Red Blood Count 5.06 M/uL (4.20-5.40); White Blood Count 5.57 K/ul (4.8-10.8)
[2022-09-30 08:37] LABS: BUN Creatinine Ratio 18.2 (10-20); C Reactive Protein 9.25 mg/dl (0-0.5); Calcium 9.9 mg/dl (8.6-10.3); Creatinine Clr Calc Pharmacy 99.8 ml/min; Est GFR (African American) 105.2 ml/min; Est GFR (Non-African American) 90.8 ml/min; Potassium 3.8 mmol/L (3.5-5.1)
[2022-09-30] MEDS: METOPROLOL SUCC 25MG EXT REL TAB PO SCH (08:51)
[2022-09-30] MEDS: ACETAMINOPHEN 325 MG TAB PO SCH ×4 (08:51→20:07)
[2022-09-30] MEDS: LIDOCAINE 5% 1 PATCH TD SCH (08:52)
[2022-09-30] MEDS: POLYETHYLENE (MIRALAX) 17 GM PACK PO SCH ×2 (08:52→19:25)
[2022-09-30] MEDS: DOCUSATE SODIUM/SENNA 50/8.6MG TAB PO SCH (09:04)
--- NOTE | 2022-09-30 09:28 | Hospitalist Progress Note ---
Date of Service September 30, 2022 Assessment & Plan (1) Chronic back pain: Plan: 67 yo female with acute exacerbation of chronic back pain. No trauma, pain started when patient was watching TV on 09/19/22 Patient reports pain is better controlled on this new pain regimen: oxycontin 10 mg PO BID, continue acetaminophen 650 mg PO QID Patient has spinal cord stimulator, not compatible with MRI CT back spine shows lumbar spine has severe stenosis Patient has a spinal cord stimulator, [employer] is aware and will see her Pain is radiating down her legs. consult ortho spine: ordered myelogram, interpretation by radiology shows degenerative and postoperative changes with no significant central canal stenosis with multilevel wxpnylpn-kn-idponi facet arthrosis. Little pain control consideration of pain management and await orthopedics final input Falls at home could be explained by COVID. (2) COVID-19: Plan: Patient with COVID 19., possible metabolic encephalopathy affecting strength and leading to falls mildly hypoxic, low grade temperatures, CXR changes, Diagnosed on 09/28 BIOFIRE due to elevated crp, negative procal starting dexamethasone as was hypoxic per nursing report , giving remdesivir. (3) Hypertension: Plan: resumed home metoprolol BP at goal Plan DVT: lovenox Ordered PT/OT OOB to chair Admission and Anticipated Discharge Date Admission Date: September 26, 2022 Subjective pt is tearful due to issues with covid isolation, did speak to family they do not feel that they can care for her at home Pt now wants to have maximized treatment for COVID decadron and remdesivir Physical Exam Physical Exam: lung exam with some crackles good air movement Results & Data Results & Data Vital Signs (Past 12 Hours) Vital Signs Temp Pulse Resp BP Pulse Ox O2 Del Method O2 Flow Rate 09/30/22 09:13 Nasal Cannula 2 09/30/22 07:14 98.4 F 86 16 121/79 91 Nasal Cannula 2 Laboratory Results reviewed cbc reviewed prp crp elevated to 9 prompting increased treatment for covid CXR did have some progression of changes possible consistent with covid PG Care Time/CCT Total # of Minutes Spent Total Time Spent with Patient: Total time spent is greater than 50% in coordination of care (as documented) at patient's floor/unit and/or counseling patient: Coding Level of Care Code 25044 SUB INP/OBS CARE 2/35MIN Diagnoses Chronic back pain M54.9; G89.29 COVID-19 U07.1 Hypertension I10
[2022-09-30] MEDS ORDERED: dexAMETHasone 4 MG TAB PO ONE (11:30)
--- NOTE | 2022-09-30 12:14 | XRay Report ---
XR chest 1V portable CLINICAL HISTORY: eval for ground glass changes TECHNIQUE: Single frontal radiograph of the chest was obtained. Comparison: Comparison is made to chest radiograph 09/28/2022 FINDINGS: A spinal stimulator is seen. The cardiomediastinal silhouette is normal. Bilateral airspace opacities are greater in the right upper lung. No evidence of pleural effusion or pneumothorax. IMPRESSION: Multifocal airspace opacities may represent atelectasis, pneumonia, and/or aspiration. This represent s an increase from prior exam. ACT 112: Negative or not required by law. Electronically signed by: Pedro Lombardi M.D. 09/30/2022 12:13 PM
[2022-09-30] MEDS ORDERED: LORazepam 0.5 MG TAB PO PRN (15:56)
[2022-09-30] MEDS ORDERED: REMDESIVIR 200 MG in SODIUM CHLORIDE 0.9% 210 ML IV STA (15:59)
[2022-10-01] MEDS: oxyCODONE HCL 10 MG TABCR (OxyCONTIN) PO SCH (06:39)
[2022-10-01] MEDS: DOCUSATE SODIUM/SENNA 50/8.6MG TAB PO SCH (08:34)
[2022-10-01] MEDS: LIDOCAINE 5% 1 PATCH TD SCH (08:34)
[2022-10-01] MEDS: POLYETHYLENE (MIRALAX) 17 GM PACK PO SCH (08:35)
[2022-10-01] MEDS: METOPROLOL SUCC 25MG EXT REL TAB PO SCH (08:43)
[2022-10-01] MEDS: ACETAMINOPHEN 325 MG TAB PO SCH ×2 (08:43→12:20)
[2022-10-01] MEDS ORDERED: dexAMETHasone 4 MG TAB PO SCH (09:00)
[2022-10-01 10:02] LABS: BUN Creatinine Ratio 23.3 (10-20); C Reactive Protein 6.58 mg/dl (0-0.5); Calcium 10.3 mg/dl (8.6-10.3); Creatinine Clr Calc Pharmacy 109.7 ml/min; Est GFR (African American) 108.5 ml/min; Est GFR (Non-African American) 93.7 ml/min; Potassium 3.7 mmol/L (3.5-5.1)
--- NOTE | 2022-10-01 13:57 | Discharge Summary ---
Date of Service October 01, 2022 Admission HPI Per Admitting Provider 67 yo female with PMH of Hypertension, reports having multiple lumbar spine surgeries in the past. She reports to the ED with a 1 week history of bilateral leg pain, but she reports her pain is mainly on the right side and goes to her foot. She denies any recent trauma and the pain began while she was sitting in a chair. Pain is sharp,. She has had pain like this in the past, but she reports she has never had this last this long. Usually this pain subsides within a day or two. Patient has had 2 earlier ER visit prior to this hospital bed. She reports she also has had 2 falls within this past year. She had a spinal cord stimulator implanted years ago in [facility]. Principal Diagnosis facette arthropathy lumbar spine covid positive test/flu like symptoms Discharge Exam patient was no longer dyspneic she was not hypoxic on room air by my testing I did turn the oxygen off during her entire visit and the lowest oxygen saturation was 92% her lungs were clear her lower extremities had good sensation Discharge Data Allergies Allergy/AdvReac Type Severity Reaction Status Date / Time acetaminophen [From Percocet] AdvReac Mild Nausea Verified 09/26/22 13:54 oxycodone [From Percocet] AdvReac Mild Nausea Verified 09/26/22 13:54 Consultations 09/26/22 14:54 ED Decision to Admit Stat 09/26/22 15:48 Consult Orthopedic Spine Surgery Routine Ordered Studies Lumbar Spine X-Ray 09/27/22 10:11 LUMBAR SPINE 7 views with flexion and extension HISTORY: Back pain. COMPARISON: Lumbar spine CT 09/22/2022. FINDINGS: There is no fracture. No subluxation. The visualized sacrum is intact. The L3-L4 and L4-L5 disc spaces are narrowed and likely partially fused. Suggestion of prior laminectomy at these levels. Mild disc space narrowing at L5-S1. Straightening of the lumbar spine. Alignment remains intact throughout flexion and extension. Partially visualized spinal stimulator leads appear intact. IMPRESSION: 1. No fracture or subluxation within the lumbar spine. 2. The alignment remains intact throughout flexion and extension. 3. Postoperative and degenerative changes as described above. ACT 112: Negative or not required by law. Electronically signed by: Tyron Gaspar M.D. 09/27/2022 11:50 AM Thoracic Spine X-Ray 09/27/22 10:11 XR thoracic spine 3V routine CLINICAL HISTORY: back pain TECHNIQUE: 3 views of the thoracic spine were obtained. Comparison: None available at the time of this dictation. FINDINGS: Spinal stimulator is seen. Degenerative changes are seen in the thoracic spine. Alignment appears unremarkable. Prevertebral soft tissues are within normal limits. IMPRESSION: Degenerative changes as above without acute fracture or subluxation. ACT 112: Negative or not required by law. Electronically signed by: Pedro Lombardi M.D. 09/27/2022 11:49 AM Chest X-Ray 09/28/22 08:41 XR chest 2V PA/lateral HISTORY: fever COMPARISON: None. FINDINGS: No pneumothorax. No pleural effusions. Spinal stimulator leads are noted. Small patchy left basilar densities. There is mild central pulmonary vascular congestion without overt edema. The heart is normal in size. There is increased density overlying the right hilum. This is not confirmed on the late ral view. IMPRESSION: 1. Small patchy density left lung base which may represent atelectasis or pneumonia. 2. Increased density overlying the right hilum. This is indeterminate. Follow-up chest CT recommended for further evaluation. 3. Mild central pulmonary vascular congestion without overt edema. ACT 112: Negative or not required by law. Electronically signed by: Tyron Gaspar M.D. 09/28/2022 1:[address] 09/29/22 10:45 CT lumbar post myelogram CT DOSE: 1188.69 mGy.cm CLINICAL HISTORY: 67 years-old Female with leg pain. Chronic low back pain. TECHNIQUE: Multiple axial CT images of the lumbar spine were obtained with the use of intrathecal contrast. Coronal and sagittal reformats were generated from the axial data set and submitted for review. A dose lowering technique was utilized adhering to the principles of ALARA. COMPARISON: 09/22/2022. FINDINGS: There are 5 lumbar-type vertebral bodies segments present. The vertebral body heights appear well maintained. No evidence of acute fracture or subluxation is appreciated. Cardiomegaly. A spinal stimulator device is noted at the distal tip of the leads overlying the mid thoracic spine. The imaged intra-abdominal structures are unremarkable. Atherosclerosis of the abdominal aorta. Bilateral renal sinus cysts. No paravertebral edema. A few locules of epidural and intrathecal gas is noted at the L2-L3 level, likely postprocedural. Postoperative changes from prior posterior decompression at L3-L4. Demineralized appearance of the bones. Conus medullaris terminates at L1. Sacral Tarlov cysts are noted. T11-12: Mild facet arthrosis. No evidence of disc bulge or central canal stenosis is seen. The neural foramina appear patent bilaterally. T12-L1: Mild facet arthrosis. No evidence of disc bulge or central canal stenosis is seen. The neural foramina appear patent bilaterally. L1-L2: Mild facet arthrosis. No evidence of disc bulge or central canal stenosis is seen. The neural foramina appear patent bilaterally. L2-L3: Mild facet arthrosis with ligamentum flavum thickening and mild spondylitic spurring. Small posterior annular disc bulge with annular fissure. Mild inferior bilateral foraminal narrowing. The central canal is patent. L3-L4: Severe intervertebral disc space narrowing with veev-ia-nhwjyeam spondylitic spurring, ligamentum flavum thickening with moderate facet arthrosis. Prior posterior decompression. Small posterior annular disc bulge. The central canal is patent. Mild right with wujs-ck-tlrejcxt left foraminal narrowing. L4-L5: Severe intervertebral disc space narrowing with fmpb-hb-oeoezorf spondylitic spurring, ligamentum flavum thickening with xeoacwsa-mk-yydwdz facet arthrosis. Small posterior disc osteophyte complex. Flattening of the ventral thecal sac without significant central canal stenosis. Mild bilateral foraminal narrowing, left greater than right. L5-S1: Mild intervertebral disc space narrowing with spondylotic spurring. Chondrocalcinosis of the disc space. Ligamentum flavum thickening with severe facet arthrosis. Small central/left paracentral disc osteophyte complex measur ing up to 1.6 cm transversely. There is abutment without significant displacement of the left S1 nerve root. Moderate left lateral recess narrowing. Mild epidural lipomatosis. No significant central canal stenosis. Ruzh-yj-ypmhrnnu bilateral foraminal narrowing. IMPRESSION: 1. No acute fracture or subluxation. 2. Degenerative and postoperative changes as above. 3. No significant central canal stenosis. 4. Multilevel neural foraminal narrowing. 5. Small Tarlov cysts of the sacrum. ACT 112: Negative or not required by law. The above report was generated using voice recognition software. It may contain grammatical, syntax or spelling errors. Dictated: 09/29/2022 1:04 PM Transcribed: 09/29/2022 1:23 PM Evan [id number] [email or web address] Electronically signed by: Margarito Hill M.D. 09/29/2022 1:34 PM Myelogram,Lumbar Spine 09/29/22 13:00 Lumbar myelogram injection INDICATION: Back pain with radiculopathy PROCEDURE: Procedure and risks were explained. Informed consent was obtained. A final timeout was completed. The patient was placed prone on the fluoroscopic exam table. The lower lumbar region was prepped and draped in sterile fashion. 1% lidocaine was utilized for skin anesthesia. Utilizing fluoroscopic guidance, a 22-gauge spinal needle was advanced into the intrathecal space at the L2-3 disc space level. Approximately 12 mL of Isovue-M 200 was injected. Fluoroscopic spot images were obtained. The needle was removed and Band-Aid applied. The patient tolerated the procedure well. She will be transferred to CT for additional imaging. Total fluoroscopy time 1.3 minutes. DAP is 31.7 mcGy/m2. IMPRESSION: Lumbar myelogram injection as above. Please refer to CT report for additional information. Electronically signed by: Pedro Lombardi M.D. 09/30/2022 7:14 AM Chest X-Ray 09/30/22 11:18 XR chest 1V portable CLINICAL HISTORY: eval for ground glass changes TECHNIQUE: Single frontal radiograph of the chest was obtained. Comparison: Comparison is made to chest radiograph 09/28/2022 FINDINGS: A spinal stimulator is seen. The cardiomediastinal silhouette is normal. Bilate ral airspace opacities are greater in the right upper lung. No evidence of pleural effusion or pneumothorax. IMPRESSION: Multifocal airspace opacities may represent atelectasis, pneumonia, and/or a spiration. This represents an increase from prior exam. ACT 112: Negative or not required by law. Electronically signed by: Pedro Lombardi M.D. 09/30/2022 12:13 PM Hospital Course (1) Chronic back pain: 67 yo female with acute exacerbation of chronic back pain. No trauma, pain started when patient was watching TV on 09/19/22 Patient reports pain is better patient is resistant to the medications wishes to return to her home pain regimen Patient has spinal cord stimulator, not compatible with MRI CT lumbar spine suggests severe stenosis, however myelogram, interpretation by radiology shows degenerative and postoperative changes with no significant central canal stenosis with multilevel tcnzfoez-df-rbsssw facet arthrosis. Patient has a spinal cord stimulator, [employer] is aware and will see her Falls at home could be explained by COVID. (2) COVID-19: Patient with COVID 19., possible metabolic encephalopathy affecting strength and leading to falls low grade temperatures, CXR changes are minor, Diagnosed on 09/28 BIOFIRE due to elevated crp, negative procal starting dexamethasone as was hypoxic per nursing report , patient did receive 1 dose of remdesivir while in the hospital hypoxia resolved patient will go home on dexamethasone (3) Hypertension: resumed home metoprolol BP at goal Plan PT evaluated patient recommended home PT which patient declined but does not feel patient would require inpatient rehab 18 Total Time Total Time Spent Total Time Spent (In Minutes): it required greater than 30 minutes to prepare this patient for discharge Discharge Plan Discharge Items Patient Disposition: Home - Self-Care Reason For Visit: BACK PAIN Discharge Diagnosis: back pain, facet arthropathy Covid test positive, flu like symptoms Activity: Per Instructions section Activity Comment: isolation instructions as below Non-emergency contact: Primary Care Provider and Surgeon Call non-emergency contact if: your symptoms worsen Follow-up/Referrals: Uday Schrader MD [Primary Care Provider] - Diet: Regular Addtl Attending Provider Instructions: you have been diagnosed with covid infection, it would be recommended that you quarantine yourself for 10 days from your first test or first symptoms, and if at the 10th day you have no symptoms the you can come off quarantine but use common sense precautions. Quarantine means attempting to stay away from people who have not had an active covid infection in the past, and if you have to be around others to wear a mask even if you are indoors, do not share a room to sleep in with others until you are out of quarantine. If you still have symptoms at the 10th day, continue to quarantine until you are symptom free for 48 hours Your 11-day of isolation will be October 09 Pending Studies at Discharge: No Stand-Alone Forms: My SnapAppointments, Smoking Cessation Medications and DC Order Prescriptions: New dexamethasone 6 mg tablet 6 mg PO DAILY Qty: 7 0RF Continued cyclobenzaprine 10 mg tablet 10 mg PO TID PRN (Reason: muscle spasm) Qty: 20 0RF hydrocodone-acetaminophen 5-325 mg tablet 1 - 2 tab PO Q6H PRN (Reason: pain) Qty: 15 0RF Rx Instructions: Initial Treatment lorazepam 0.5 mg tablet 0.5 mg PO DAILY PRN (Reason: ANXIETY) metoprolol succinate 25 mg tablet extended release 24 hr 25 mg PO DAILY Discharge Orders: Discharge Order (Routine); Ordered 10/01/22 Ordered By: Faraz Tran Admission Data Admit Date/Time: 09/26/22 15:47 Attending Provider: Faraz Tran Admit Provider: Kieran German Primary Care Provider: Uday Schrader Other Providers: Marciano Marte ; Reese Gill ; [facility] Coding Level of Care Code 34808 INP/OBS DISCH >30 MIN Diagnoses Chronic back pain M54.9; G89.29 COVID-19 U07.1 Hypertension I10
[2022-10-01] MEDS ORDERED: REMDESIVIR 100 MG in SODIUM CHLORIDE 0.9% 230 ML IV SCH (20:00)
== END 2022-10-01 15:26 | disposition home health service (06) | DRG 551 ==
LOC: ED 11:51 → 3N 15:47 → SUATTDRO 15:47 → 3N 17:58 → 3E 09-28 12:57

== ENCOUNTER 2022-10-08 12:45 | Observation (INO) ==
--- NOTE | 2022-10-08 13:35 | Emergency Department Note ---
Impression & Plan Generalized weakness ED Provider Note HISTORY OF PRESENT ILLNESS: Patient is a 67-year-old female presenting with generalized weakness. Patient reports she was diagnosed with COVID 12 days ago and was recently admitted to the hospital. She reports she was discharged a week ago and states that in the last week she has gotten progressively worse. Reports that she feels too weak to get up and get around her house. Denies any chest pain or shortness of breath. Denies any fevers. Reports she has had significant decrease in her oral intake over the last week. Reports some dysuria. Denies any abdominal pain. ROS: as above PHYSICAL EXAM: Constitutional: Patient appears in no acute distress. HENT: Head: Normocephalic and atraumatic. Eyes: EOMI, PERRL Mouth/Throat: Mucous membranes moist. Neck: Trachea midline. Neck supple. Cardiovascular: RRR, No murmurs, rubs or gallops. Intact distal pulses. Pulmonary/Chest: No respiratory distress. Breath sounds clear and equal bilaterally. No wheezes or rales. Abdominal: Abdomen soft, no tenderness, rebound or guarding. Musculoskeletal: No edema, tenderness or deformity noted. Skin: Warm and dry. No rash, erythema, pallor or cyanosis Psychiatric: Appropriate mood and affect for situation. Neurological: Alert and keenly responsive. CN II-XII grossly intact, moving all extremities equally and fully. MDM: - Vitals signs stable. - History obtained via patient. Patient presents with generalized weakness. Patient reports that she has been having progressively worsening weakness over the last week since being discharged from the hospital. She reports she feels too weak to get up and around her house. She lives alone. Reports she has had decreased oral intake over the last week secondary to no appetite. Reports some dysuria. Denies any chest pain or shortness of breath. Denies any abdominal pain. - Chronic conditions affecting care: Hypertension - Differential diagnoses include, but are not limited to: pneumonia; UTI; electrolyte abnormality; ALEXANDRE - Order placed for continuous cardiac monitoring. At this time, monitor showed rate of 65 bpm with normal sinus rhythm, per my interpretation. - External medical records reviewed. - EKG reviewed by myself showed normal sinus rhythm. Rate 62 bpm. QTc 414. No acute ischemic changes. - Laboratory workup interpreted by myself showed normal WBC; stable elec trolytes; normal troponin - UA showed bacteria, but no other evidence of UTI. Sample is a clean catch, so less likely to be UTI. - CXR negative for obvious pneumonia, per my interpretation. However, radiology reports that the patient has progression of her multifocal airspace opacities. - CT head wo contrast negative for acute intracranial pathology - Discussed results with patient. She does not feel comfortable with discharge home, as she lives alone and she feels too weak. I discussed that she has no significant pathology on her work-up here in the emergency department. However, she would like to be admitted for the night. - Discussion was had with high school social studies tutor about patient's case and need for observation - Hospitalist consulted for admission - [facility] ASSESSMENT AND PLAN: Diagnosis: Generalized weakness Plan: Admission for observation Past Med/Surg History Medical History Chronic back pain Hypertension Surgical History History of lumbar surgery S/P insertion of spinal cord stimulator Social History Smoking Status: Never smoker Hx Alcohol Use: Yes Alcohol type: hard liquor Hx Substance Use: No Preferred Language: Polish Communication Ability: Effective Department Assistant Required: No Beliefs That Will Affect Care: None Current Living Situation: Alone current occupational status: retired Feels Safe at Home: Yes Assistive Devices: Cane and Glasses Allergies Allergies Allergy/AdvReac Type Severity Reaction Status Date / Time acetaminophen [From Percocet] AdvReac Mild Nausea Verified 09/26/22 13:54 oxycodone [From Percocet] AdvReac Mild Nausea Verified 09/26/22 13:54 Home Meds Home Medications Medication Instructions Recorded Confirmed lorazepam 0.5 mg tablet 0.5 mg PO DAILY PRN ANXIETY 09/26/22 10/08/22 metoprolol succinate 25 mg 25 mg PO DAILY 09/26/22 10/08/22 tablet,extended release 24 hr gabapentin 300 mg capsule 300 mg PO UD 10/08/22 10/08/22 Previous Rx's Medication Instructions Recorded cyclobenzaprine 10 mg tablet 10 mg PO TID PRN muscle spasm #20 09/22/22 tabs hydrocodone 5 mg-acetaminophen 325 1 - 2 tab PO Q6H PRN pain #15 tabs 09/22/22 mg tablet dexamethasone 6 mg tablet 6 mg PO DAILY #7 tabs 10/01/22 Results & Data (ED) Vital Signs Vital Signs - 24 hr 10/08/22 13:01 10/08/22 12:35 10/08/22 12:35 Temperature 36.9 C Temperature Source Oral Pulse Rate 64 63 Pulse Rate from SpO2 Sensor Respiratory Rate 15 Respiratory Effort / Characteristics Non-Labored Spontaneous Respiratory Depth Normal Respiratory Pattern Regular Blood Pressure 129/78 Blood Pressure Mean 95 Pulse Oximetry 95 95 Oxygen Delivery Method Room Air Room Air Oxygen Flow Rate 0 Sepsis Recent Fever Within 48 Hours No Sepsis New/Unexplained Change in Mental Status N/A Sepsis Action Taken by Nursing No Action Required 10/08/22 13:00 10/08/22 13:05 10/08/22 13:05 Temperature Temperature Source Pulse Rate 66 63 Pulse Rate from SpO2 Sensor 67 62 Respiratory Rate 16 14 Respiratory Effort / Characteristics Respiratory Depth Respiratory Pattern Blood Pressure 129/78 Blood Pressure Mean 104 Pulse Oximetry 94 94 Oxygen Delivery Method Oxygen Flow Rate Sepsis Recent Fever Within 48 Hours Sepsis New/Unexplained Change in Mental Status Sepsis Action Taken by Nursing 10/08/22 13:30 10/08/22 13:30 10/08/22 14:00 Temperature Temperature Source Pulse Rate 63 63 Pulse Rate from SpO2 Sensor 64 Respiratory Rate 16 11 L Respiratory Effort / Characteristics Respiratory Depth Respiratory Pattern Blood Pressure 120/71 Blood Pressure Mean 94 Pulse Oximetry 92 Oxygen Delivery Method Oxygen Flow Rate Sepsis Recent Fever Within 48 Hours Sepsis New/Unexplained Change in Mental Status Sepsis Action Taken by Nursing 10/08/22 14:05 10/08/22 14:05 10/08/22 14:30 Temperature Temperature Source Pulse Rate 63 Pulse Rate from SpO2 Sensor 58 L Respiratory Rate 19 Respiratory Effort / Characteristics Respiratory Depth Respiratory Pattern Blood Pressure 130/73 139/74 Blood Pressure Mean 83 91 Pulse Oximetry 94 Oxygen Delivery Method Room Air Oxygen Flow Rate Sepsis Recent Fever Within 48 Hours Sepsis New/Unexplained Change in Mental Status Sepsis Action Taken by Nursing 10/08/22 14:30 10/08/22 15:00 10/08/22 15:00 Temperature Temperature Source Pulse Rate 63 63 Pulse Rate from SpO2 Sensor 63 63 Respiratory Rate 16 15 Respiratory Effort / Characteristics Respiratory Depth Respiratory Pattern Blood Pressure 134/94 Blood Pressure Mean 101 Pulse Oximetry 95 94 Oxygen Delivery Method Oxygen Flow Rate Sepsis Recent Fever Within 48 Hours Sepsis New/Unexplained Change in Mental Status Sepsis Action Taken by Nursing 10/08/22 15:30 10/08/22 15:30 10/08/22 16:00 Temperature Temperature Source Pulse Rate 66 Pulse Rate from SpO2 Sensor 65 Respiratory Rate 18 Respiratory Effort / Characteristics Respiratory Depth Respiratory Pattern Blood Pressure 117/65 110/72 Blood Pressure Mean 98 84 Pulse Oximetry 95 Oxygen Delivery Method Oxygen Flow Rate Sepsis Recent Fever Within 48 Hours Sepsis New/Unexplained Change in Mental Status Sepsis Action Taken by Nursing 10/08/22 16:00 10/08/22 16:30 10/08/22 16:30 Temperature Temperature Source Pulse Rate 66 64 Pulse Rate from SpO2 Sensor 65 64 Respiratory Rate 14 16 Respiratory Effort / Characteristics Respiratory Depth Respiratory Pattern Blood Pressure 118/70 Blood Pressure Mean 90 Pulse Oximetry 93 93 Oxygen Delivery Method Room Air Oxygen Flow Rate Sepsis Recent Fever Within 48 Hours Sepsis New/Unexplained Change in Mental Status Sepsis Action Taken by Nursing Laboratory Data 10/08/22 13:55 10/08/22 13:55 Lab Results 10/08/22 10/08/22 10/08/22 Range/Units 12:53 13:55 13:55 WBC 8.57 (4.8-10.8) K/ul RBC 5.26 (4.20-5.40) M/uL Hgb 15.0 (12.0-16.0) g/dl Hct 44.6 (37.0-47.0) % MCV 84.8 (80.0-100.0) fL MCH 28.5 (25.0-34.0) pg MCHC 33.6 (32.0-36.0) g/dL RDW Std Deviation 41.0 (36.4-46.3) fL RDW Coeff of [place] 13.3 (11.5-14.5) % Plt Count 277 (130-400) K/uL MPV 9.9 (9.4-12.4) fL Immature Gran % (Auto) 2.1 % Neut % (Auto) 71.7 % Lymph % (Auto) 17.0 % [place] % (Auto) 8.6 % Eos % (Auto) 0.5 % Baso % (Auto) 0.1 % Neut # (Auto) 6.14 (1.40-6.50) K/uL Lymph # (Auto) 1.46 (1.20-3.40) K/uL [place] # (Auto) 0.74 H (0.11-0.59) K/uL Eos # (Auto) 0.04 (0.00-0.50) K/uL Baso # (Auto) 0.01 (0.00-0.20) K/uL Immature Gran # (Auto) 0.18 (0.01-0.20) K/uL Sodium 136 (136-145) mmol/L Potassium 3.6 (3.5-5.1) mmol/L Chloride 104 (98-107) mmol/L Carbon Dioxide 24 (21-32) mmol/L Anion Gap 8 (3-11) BUN 19 (6-23) mg/dl Creatinine 0.70 (0.6-1.2) mg/dl Est Cr Clr Drug Dosing 89.2 ml/min Est GFR ( Amer) 103.2 ml/min Est GFR (Non-Af Amer) 89.0 ml/min BUN/Creatinine Ratio 27.1 H (10-20) Glucose 94 (70-99(Fasting)) mg/dl Calcium 10.1 (8.6-10.3) mg/dl Magnesium 2.4 (1.7-2.4) mg/dl Total Bilirubin 0.7 (0.2-1.0) mg/dl AST 21 (13-39) U/L ALT 35 (7-52) U/L Alkaline Phosphatase 56 (34-104) U/L Troponin I High Sens 3.8 (0-14) pg/ml Total Protein 6.7 (6.0-8.3) gm/dl Albumin 3.5 (3.4-5.0) gm/dl Globulin 3.2 (2.5-4.0) gm/dl Albumin/Globulin Ratio 1.1 (0.9-2) Urine Color Yellow Urine Appearance Cloudy A (Clear) Urine pH 6.5 (4.5-7.5) Ur Specific [place] 1.018 (1.000-1.030) Urine Protein Negative (Negative) Urine Glucose (UA) Negative (Negative) Urine Ketones Negative (Negative) Urine Blood Negative (Negative) Urine Nitrite Negative (Negative) Urine Bilirubin Negative (Negative) Urine Urobilinogen Negative (Negative) Ur Leukocyte Esterase Negative (Negative) Urine WBC (Auto) 1-5 (0-5) /hpf Urine RBC (Auto) 5-10 H (0-4) /hpf U Hyaline Cast (Auto) 0 (0-5) /lpf U Epithel Cells (Auto) >30 H (0-5) /lpf Urine Bacteria (Auto) 2+ H (Negative) Imaging Data Radiologist's Impression: Chest X-Ray 10/08/22 13:33 XR chest 1V portable CLINICAL HISTORY: weakness; COVID COMPARISON STUDY: Chest radiograph September 30, 2022. FINDINGS: Intracanalicular electrodes are incidentally noted. There is no pneumothorax or pleural effusion. Multifocal right lung airspace opacities have mildly progressed. Minimal left basilar opacity is present. No evidence for pulmonary edema. Cardiac size is normal. Mediastinal contours are normal. IMPRESSION: Progression of multifocal airspace opacities within the right lung suggestive of pneumonia. ACT 112: Negative or not required by law. Electronically signed by: Vijay Greene M.D. 10/08/2022 1:[address] 10/08/22 18:01 CT OF THE HEAD WITHOUT CONTRAST CLINICAL HISTORY: Generalized weakness. Recent fall. COMPARISON STUDY: No previous studies for comparison. CT DOSE: 625.80 mGy.cm TECHNIQUE: Helical axial images of the head were obtained without IV contrast. Automated exposure control was utilized for the study. A dose lowering technique was utilized adhering to the principles of ALARA. FINDINGS: No acute intracranial hemorrhage, midline shift or mass effect is present. The ventricular system is unremarkable. The basal cisterns are patent. No extra-axial collections are present. There are no findings to suggest acute dural sinus thrombosis or acute territorial infarct. No significant calvarial abnormalities are present. Visualized portions of the sinuses and mastoid air cells are clear. IMPRESSION: 1. No acute intracranial findings. 2. No acute calvarial fracture. ACT 112: Negative or not required by law. Electronically signed by: Vijay Greene M.D. 10/08/2022 6:51 PM Discharge Plan Visit Data Chief Complaint: Weakness ED Provider: Allie Alonzo Discharge Problem: Generalized weakness Forms Stand Alone Forms: [facility] [employer] Prescriptions Prescriptions: No Action cyclobenzaprine 10 mg tablet 10 mg PO TID PRN (Reason: muscle spasm) Qty: 20 0RF hydrocodone-acetaminophen 5-325 mg tablet 1 - 2 tab PO Q6H PRN (Reason: pain) Qty: 15 0RF Rx Instructions: Initial Treatment lorazepam 0.5 mg tablet 0.5 mg PO DAILY PRN (Reason: ANXIETY) metoprolol succinate 25 mg tablet extended release 24 hr 25 mg PO DAILY dexamethasone 6 mg tablet 6 mg PO DAILY Qty: 7 0RF gabapentin 300 mg capsule 300 mg PO UD Referrals Referrals: Uday Schrader MD [Primary Care Provider] -
--- NOTE | 2022-10-08 13:56 | XRay Report ---
XR chest 1V portable CLINICAL HISTORY: weakness; COVID COMPARISON STUDY: Chest radiograph September 30, 2022. FINDINGS: Intracanalicular electrodes are incidentally noted. There is no pneumothorax or pleural eff usion. Multifocal right lung airspace opacities have mildly progressed. Minimal left basilar opacity is present. No evidence for pulmonary edema. Cardiac size is normal. Mediastinal contours are normal. IMPRESSION: Progression of multifocal airspace opacities within the right lung suggestive of pneumon ia. ACT 112: Negative or not required by law. Electronically signed by: Vijay Greene M.D. 10/08/2022 1:55 PM
[2022-10-08 14:10] LABS: Appearance Urine Cloudy (Clear); Bacteria Urine Automated 2+ (Negative); Bilirubin Urine Negative (Negative); Blood Urine Negative (Negative); Cast Urine Automated 0 /lpf (0-5); Color Urine Yellow; Epithelial Cell Urine Auto >30 /lpf (0-5); Glucose Urine UA Negative (Negative); Ketones Urine Negative (Negative); Leukocyte Esterase Urine Negative (Negative); Nitrite Urine Negative (Negative); Protein Urine Negative (Negative); Specific Gravity Urine 1.018 (1.000-1.030); Urobilinogen Urine Negative (Negative); pH Urine 6.5 (4.5-7.5)
[2022-10-08 14:27] LABS: Basophils # (auto) 0.01 K/uL (0.00-0.20); Basophils % (auto) 0.1 %; Eosinophils # (auto) 0.04 K/uL (0.00-0.50); Eosinophils % (auto) 0.5 %; Hematocrit (blood only) 44.6 % (37.0-47.0); Immature Granulocytes # (auto) 0.18 K/uL (0.01-0.20); Immature Granulocytes % (auto) 2.1 %; Lymphocytes # (auto) 1.46 K/uL (1.20-3.40); Mean Corpuscular Hemoglobin 28.5 pg (25.0-34.0); Mean Corpuscular Hgb Conc 33.6 g/dL (32.0-36.0); Mean Corpuscular Volume 84.8 fL (80.0-100.0); Mean Platelet Volume 9.9 fL (9.4-12.4); Monocytes # (auto) 0.74 K/uL (0.11-0.59); Monocytes % (auto) 8.6 %; Neutrophils # (auto) 6.14 K/uL (1.40-6.50); Neutrophils % (auto) 71.7 %; Platelet Count 277 K/uL (130-400); RDW Coefficient of Variation 13.3 % (11.5-14.5); Red Blood Count 5.26 M/uL (4.20-5.40); White Blood Count 8.57 K/ul (4.8-10.8)
[2022-10-08 14:44] LABS: Albumin Globulin Ratio 1.1 (0.9-2); Albumin Level 3.5 gm/dl (3.4-5.0); BUN Creatinine Ratio 27.1 (10-20); Bilirubin,Total 0.7 mg/dl (0.2-1.0); Calcium 10.1 mg/dl (8.6-10.3); Creatinine Clr Calc Pharmacy 89.2 ml/min; Est GFR (African American) 103.2 ml/min; Globulin 3.2 gm/dl (2.5-4.0); Magnesium 2.4 mg/dl (1.7-2.4); Potassium 3.6 mmol/L (3.5-5.1); Total Protein 6.7 gm/dl (6.0-8.3)
[2022-10-08 14:51] LABS: Troponin I High Sensitivity 3.8 pg/ml (0-14)
--- NOTE | 2022-10-08 17:37 | Electrocardiogram Report ---
Test Reason : Blood Pressure : / mmHG Vent. Rate : 062 BPM Atrial Rate : 062 BPM P-R Int : 170 ms QRS Dur : 094 ms QT Int : 408 ms P-R-T Axes : 056 026 060 degrees QTc Int : 414 ms Normal sinus rhythm Low voltage QRS Borderline ECG No previous ECGs available Confirmed by Robbie Chakraborty ([id number]) on 10/08/2022 5:36:55 PM Referred By: Confirmed By:Maxmiino Chakraborty
--- NOTE | 2022-10-08 18:53 | CT Scan Report ---
CT OF THE HEAD WITHOUT CONTRAST CLINICAL HISTORY: Generalized weakness. Recent fall. COMPARISON STUDY: No previous studies for comparison. CT DOSE: 625.80 mGy.cm TECHNIQUE: Helical axial images of the head were obtained without IV contrast. Automated exposure con trol was utilized for the study. A dose lowering technique was utilized adhering to the principles o f ALARA. FINDINGS: No acute intracranial hemorrhage, midline shift or mass effect is present. The ventricular system is unremarkable. The basal cisterns are patent. No extra-axial collections are present. There are no findings to suggest acute dural sinus thrombosis or acute territorial infarct. No significant calvarial abnormalities are present. Visualized portions of the sinuses and mastoid air cells are eufemia ar. IMPRESSION: 1. No acute intracranial findings. 2. No acute calvarial fracture. ACT 112: Negative or not required by law. Electronically signed by: Vijay Greene M.D. 10/08/2022 6:51 PM
--- NOTE | 2022-10-08 19:52 | History & Physical Report ---
Date of Service October 08, 2022 Assessment & Plan (1) Generalized weakness: Plan: 67yo female with history of well controlled HTN and chronic back pain with spinal cord stimulator in place presenting from home with persistent generalized weakness and fatigue. Patient was recently hospitalized from 09/26 - 10/01 with severe back pain. She was found to have Covid-19 infection at that time with hypoxia. She was treated with Dexamethasone and received 1 dose of Remdesivir. No additional complaints. Her vital signs are within normal range and her lab work including electrolytes, renal function, hepatic panel and CBC are pristine. CT of the head is normal. She does have progression of multifocal airspace opacities in the right lung suggestive of PNA noted on her CXR but does not endorse active pulmonary symptoms. Uncertain why she has persistent weakness and fatigue. Likely some post-Covid symptoms as well as deconditioning from her recent hospitalization. The progression of her pulmonary opacities as read on CXR is somewhat concerning, however. -Observation to medical -As patient is 10 days out from her Covid-19 diagnosis she no longer needs to be kept on isolation -Check PO4, Cortisol and CK -Check ESR, CRP, LDH and Procalcitonin - if elevated procalcitonin will initiate antibiotics for presumed bacterial PNA -PT/OT evaluation appreciated -If pulmonary symptoms develop would obtain CT chest (2) Hypertension: Plan: WEll controlled -Continue Metoprolol 25mg po daily -Monitor BP (3) Chronic back pain: Plan: Chronic. Stable and improved from last hospital admission. Patient reports that she does not take medications at this time for her back pain -Monitor History of Present Illness Chief Complaint: weakness Primary Care Provider: Uday Schrader MD Ximena Lucio is a 67yo female with history of well controlled hypertension and chronic back pain s/p multiple lumbar surgeries. She was recently hospitalized at [facility] from 09/26/22 - 10/01/22 after presenting with severe back pain and foot pain. She was found to have Covid-19 infection during that stay with hypoxia and metabolic encephalopathy. She was treated with Dexamethasone and received 1 dose of Remdesivir during her stay and was discharged home in stable condition on 10/01/22 with a prescription for Dexamethasone. Patient reports finishing her Dexamethasone course. Reports persistent fatigue and generalized weakness. She did have a fall at home on 10/01/22 due to weakness and imbalance - no LOC or head trauma. She has been having a difficult time getting around in her home and performing her ADLs. She has not had much appetite since returning home and has eaten very little. She does report drinking fluids including Ensure, Pedialyte and Gatorade. Otherwise she denies fever, chills, cough, CP, SOB, abdominal pain, nausea, vomiting or diarrhea. No rashes or joint pain. No additional complaints. In the ER she is afebrile, HD stable and non-toxic in appearance. Allergies Allergy/AdvReac Type Severity Reaction Status Date / Time acetaminophen [From Percocet] AdvReac Mild Nausea Verified 09/26/22 13:54 oxycodone [From Percocet] AdvReac Mild Nausea Verified 09/26/22 13:54 Home Medications Medication Instructions Recorded Confirmed Type cyclobenzaprine 10 mg tablet 10 mg PO TID PRN muscle spasm #20 09/22/22 10/08/22 Rx tabs hydrocodone 5 mg-acetaminophen 325 1 - 2 tab PO Q6H PRN pain #15 tabs 09/22/22 0 10/08/22 Rx mg tablet lorazepam 0.5 mg tablet 0.5 mg PO DAILY PRN ANXIETY 09/26/22 10/08/22 History metoprolol succinate 25 mg 25 mg PO DAILY 09/26/22 10/08/22 History tablet,extended release 24 hr dexamethasone 6 mg tablet 6 mg PO DAILY #7 tabs 10/01/22 10/08/22 Rx gabapentin 300 mg capsule 300 mg PO UD 10/08/22 10/08/22 History Past Med/Surg History Medical History Chronic back pain Hypertension Surgical History History of lumbar surgery S/P insertion of spinal cord stimulator Social History Smoking Status: Never smoker Hx Alcohol Use: Yes Alcohol type: hard liquor Hx Substance Use: No Preferred Language: Maltese Communication Ability: Effective Gyroscopic Instrument Tester Required: No Beliefs That Will Affect Care: None Current Living Situation: Alone current occupational status: retired Feels Safe at Home: Yes Assistive Devices: Cane and Glasses Review of Systems Review of Systems: All systems reviewed & are unremarkable except as noted in HPI & below Physical Exam Physical Exam: General: patient resting comfortably, NAD, non-toxic in appearance, AA&O x 4 Skin: warm, dry, intact, no rashes or lesions HEENT: NC/AT, PERRL, EOMI, anicteric sclera, conjunctiva without injection, external ear normal to inspection and nontender, nares patent, moist mucus membranes, dentition intact, no oropharyngeal lesions, neck supple, trachea midline, no LAD, no thyromegaly, no JVD Heart: +S1/S2, regular, no m/r/g Lungs: equal air entry bilaterally, no rales/rhonchi/wheezes Abd: +BS, soft, NT/ND, no masses/organomegaly/ascites Ext: warm, 2+ pulses in UE/LE bilaterally, no clubbing/cyanosis or edema Neuro: nonfocal, patient AA&O x 4, speech intact, no facial droop, moving all extremities on command with equal strength 5/5 Results & Data Results & Data Vital Signs (Past 12 Hours) Vital Signs Temp Pulse Resp BP Pulse Ox O2 Del Method O2 Flow Rate 10/08/22 16:30 64 16 93 Room Air 10/08/22 16:30 118/70 10/08/22 16:00 66 14 93 10/08/22 16:00 110/72 10/08/22 15:30 66 18 95 10/08/22 15:30 117/65 10/08/22 15:00 63 15 94 10/08/22 15:00 134/94 10/08/22 14:30 63 16 95 10/08/22 14:30 139/74 10/08/22 14:05 130/73 10/08/22 14:05 63 19 94 Room Air 10/08/22 14:00 63 11 L 10/08/22 13:30 63 16 92 10/08/22 13:30 120/71 10/08/22 13:05 63 14 94 10/08/22 13:05 129/78 10/08/22 13:00 66 16 94 10/08/22 12:35 95 Room Air 0 10/08/22 12:35 36.9 C 63 15 129/78 95 Room Air 10/08/22 13:01 64 Laboratory Results Laboratory Results WBC 8.57 K/ul (4.8-10.8) 10/08/22 13:55 RBC 5.26 M/uL (4.20-5.40) 10/08/22 13:55 Hgb 15.0 g/dl (12.0-16.0) 10/08/22 13:55 Hct 44.6 % (37.0-47.0) 10/08/22 13:55 MCV 84.8 fL (80.0-100.0) 10/08/22 13:55 MCH 28.5 pg (25.0-34.0) 10/08/22 13:55 MCHC 33.6 g/dL (32.0-36.0) 10/08/22 13:55 RDW Std Deviation 41.0 fL (36.4-46.3) 10/08/22 13:55 RDW Coeff of [place] 13.3 % (11.5-14.5) 10/08/22 13:55 Plt Count 277 K/uL (130-400) 10/08/22 13:55 MPV 9.9 fL (9.4-12.4) 10/08/22 13:55 Immature Gran % (Auto) 2.1 % 10/08/22 13:55 Neut % (Auto) 71.7 % 10/08/22 13:55 Lymph % (Auto) 17.0 % 10/08/22 13:55 [place] % (Auto) 8.6 % 10/08/22 13:55 Eos % (Auto) 0.5 % 10/08/22 13:55 Baso % (Auto) 0.1 % 10/08/22 13:55 Neut # (Auto) 6.14 K/uL (1.40-6.50) 10/08/22 13:55 Lymph # (Auto) 1.46 K/uL (1.20-3.40) 10/08/22 13:55 [place] # (Auto) 0.74 K/uL (0.11-0.59) H 10/08/22 13:55 Eos # (Auto) 0.04 K/uL (0.00-0.50) 10/08/22 13:55 Baso # (Auto) 0.01 K/uL (0.00-0.20) 10/08/22 13:55 Immature Gran # (Auto) 0.18 K/uL (0.01-0.20) 10/08/22 13:55 Sodium 136 mmol/L (136-145) 10/08/22 13:55 Potassium 3.6 mmol/L (3.5-5.1) 10/08/22 13:55 Chloride 104 mmol/L (98-107) 10/08/22 13:55 Carbon Dioxide 24 mmol/L (21-32) 10/08/22 13:55 Anion Gap 8 (3-11) 10/08/22 13:55 BUN 19 mg/dl (6-23) 10/08/22 13:55 Creatinine 0.70 mg/dl (0.6-1.2) 10/08/22 13:55 Est Cr Clr Drug Dosing 89.2 ml/min 10/08/22 13:55 Est GFR ( Amer) 103.2 ml/min 10/08/22 13:55 Est GFR (Non-Af Amer) 89.0 ml/min 10/08/22 13:55 BUN/Creatinine Ratio 27.1 (10-20) H 10/08/22 13:55 Glucose 94 mg/dl (70-99(Fasting)) 10/08/22 13:55 Calcium 10.1 mg/dl (8.6-10.3) 10/08/22 13:55 Magnesium 2.4 mg/dl (1.7-2.4) 10/08/22 13:55 Total Bilirubin 0.7 mg/dl (0.2-1.0) 10/08/22 13:55 AST 21 U/L (13-39) 10/08/22 13:55 ALT 35 U/L (7-52) 10/08/22 13:55 Alkaline Phosphatase 56 U/L (34-104) 10/08/22 13:55 Troponin I High Sens 3.8 pg/ml (0-14) 10/08/22 13:55 Total Protein 6.7 gm/dl (6.0-8.3) 10/08/22 13:55 Albumin 3.5 gm/dl (3.4-5.0) 10/08/22 13:55 Globulin 3.2 gm/dl (2.5-4.0) 10/08/22 13:55 Albumin/Globulin Ratio 1.1 (0.9-2) 10/08/22 13:55 Urine Color Yellow 10/08/22 12:53 Urine Appearance Cloudy (Clear) A 10/08/22 12:53 Urine pH 6.5 (4.5-7.5) 10/08/22 12:53 Ur Specific [place] 1.018 (1.000-1.030) 10/08/22 12:53 Urine Protein Negative (Negative) 10/08/22 12:53 Urine Glucose (UA) Negative (Negative) 10/08/22 12:53 Urine Ketones Negative (Negative) 10/08/22 12:53 Urine Blood Negative (Negative) 10/08/22 12:53 Urine Nitrite Negative (Negative) 10/08/22 12:53 Urine Bilirubin Negative (Negative) 10/08/22 12:53 Urine Urobilinogen Negative (Negative) 10/08/22 12:53 Ur Leukocyte Esterase Negative (Negative) 10/08/22 12:53 Urine WBC (Auto) 1-5 /hpf (0-5) 10/08/22 12:53 Urine RBC (Auto) 5-10 /hpf (0-4) H 10/08/22 12:53 U Hyaline Cast (Auto) 0 /lpf (0-5) 10/08/22 12:53 U Epithel Cells (Auto) >30 /lpf (0-5) H 10/08/22 12:53 Urine Bacteria (Auto) 2+ (Negative) H 10/08/22 12:53 Impressions Chest X-Ray 10/08/22 13:33 XR chest 1V portable CLINICAL HISTORY: weakness; COVID COMPARISON STUDY: Chest radiograph September 30, 2022. FINDINGS: Intracanalicular electrodes are incidentally noted. There is no pneumothorax or pleural effusion. Multifocal right lung airspace opacities have mildly progressed. Minimal left basilar opacity is present. No evidence for pulmonary edema. Cardiac size is normal. Mediastinal contours are normal. IMPRESSION: Progression of multifocal airspace opacities within the right lung suggestive of pneumonia. ACT 112: Negative or not required by law. Electronically signed by: Vijay Greene M.D. 10/08/2022 1:[address] 10/08/22 18:01 CT OF THE HEAD WITHOUT CONTRAST CLINICAL HISTORY: Generalized weakness. Recent fall. COMPARISON STUDY: No previous studies for comparison. CT DOSE: 625.80 mGy.cm TECHNIQUE: Helical axial images of the head were obtained without IV contrast. Automated exposure control was utilized for the study. A dose lowering technique was utilized adhering to the principles of ALARA. FINDINGS: No acute intracranial hemorrhage, midline shift or mass effect is present. The ventricular system is unremarkable. The basal cisterns are patent. No extra-axial collections are present. There are no findings to suggest acute dural sinus thrombosis or acute territorial infarct. No significant calvarial abnormalities are present. Visualized portions of the sinuses and mastoid air cells are clear. IMPRESSION: 1. No acute intracranial findings. 2. No acute calvarial fracture. ACT 112: Negative or not required by law. Electronically signed by: Vijay Greene M.D. 10/08/2022 6:51 PM PG Care Time/CCT Total # of Minutes Spent Total Time Spent with Patient: Total time spent is greater than 50% in coordination of care (as documented) at patient's floor/unit and/or counseling patient: Coding Level of Care Code 12143 INT INP/OBS CARE 2/55MIN Diagnoses Generalized weakness R53.1 Hypertension I10 Chronic back pain M54.9; G89.29
[2022-10-08] MEDS ORDERED: ONDANSETRON INJ 2 MG/ML 2 ML VIAL IV PRN (21:57)
[2022-10-08] MEDS ORDERED: ACETAMINOPHEN 325 MG TAB PO PRN (21:57)
[2022-10-08] MEDS ORDERED: LORazepam 0.5 MG TAB PO PRN (21:57)
[2022-10-08] MEDS ORDERED: MELATONIN 3 MG TAB PO PRN (22:00)
[2022-10-08 22:22] LABS: C Reactive Protein 1.14 mg/dl (0-0.5); Phosphorus 3.2 mg/dl (2.5-4.9)
--- NOTE | 2022-10-09 08:18 | Hospitalist Progress Note ---
Date of Service October 09, 2022 Assessment & Plan (1) Generalized weakness: Plan: 67yo female with history of well controlled HTN and chronic back pain with spinal cord stimulator in place presenting from home with persistent generalized weakness and fatigue. Patient was recently hospitalized from 09/26 - 10/01 with severe back pain. She was found to have Covid-19 infection at that time with hypoxia. She was treated with Dexamethasone and received 1 dose of Remdesivir. No additional complaints. Her vital signs are within normal range and her lab work including electrolytes, renal function, hepatic panel and CBC are pristine. CT of the head is normal. She does have progression of multifocal airspace opacities in the right lung suggestive of PNA noted on her CXR but does not endorse active pulmonary symptoms. Uncertain why she has persistent weakness and fatigue. Likely some post-Covid symptoms as well as deconditioning from her recent hospitalization. The progression of her pulmonary opacities as read on CXR is somewhat concerning, however. -Observation to medical -As patient is 10 days out from her Covid-19 diagnosis she no longer needs to be kept on isolation -Check PO4, Cortisol and CK -Check ESR, CRP, LDH and Procalcitonin - if elevated procalcitonin will initiate antibiotics for presumed bacterial PNA -PT/OT evaluation appreciated -If pulmonary symptoms develop would obtain CT chest 10/09 (2) Hypertension: Plan: WEll controlled -Continue Metoprolol 25mg po daily -Monitor BP (3) Chronic back pain: Plan: Chronic. Stable and improved from last hospital admission. Patient reports that she does not take medications at this time for her back pain -Monitor Admission and Anticipated Discharge Date Admission Date: October 08, 2022 Results & Data Results & Data Vital Signs (Past 12 Hours) Vital Signs Temp Pulse Resp BP Pulse Ox O2 Del Method 10/09/22 07:27 36.9 C 83 16 121/76 94 Room Air 10/08/22 21:30 36.6 C 78 18 141/82 H 93 Room Air 10/08/22 21:26 Room Air 10/08/22 20:57 69 18 110/64 96 Room Air Laboratory Results 10/08/22 10/08/22 10/08/22 Range/Units 14:09 13:55 13:55 WBC (4.8-10.8) K/ul RBC (4.20-5.40) M/uL Hgb (12.0-16.0) g/dl Hct (37.0-47.0) % MCV (80.0-100.0) fL MCH (25.0-34.0) pg MCHC (32.0-36.0) g/dL RDW Std Deviation (36.4-46.3) fL RDW Coeff of [place] (11.5-14.5) % Plt Count (130-400) K/uL MPV (9.4-12.4) fL Immature Gran % (Auto) % Neut % (Auto) % Lymph % (Auto) % [place] % (Auto) % Eos % (Auto) % Baso % (Auto) % Neut # (Auto) (1.40-6.50) K/uL Lymph # (Auto) (1.20-3.40) K/uL [place] # (Auto) (0.11-0.59) K/uL Eos # (Auto) (0.00-0.50) K/uL Baso # (Auto) (0.00-0.20) K/uL Immature Gran # (Auto) (0.01-0.20) K/uL ESR (0-30) mm/hr Sodium (136-145) mmol/L Potassium (3.5-5.1) mmol/L Chloride (98-107) mmol/L Carbon Dioxide (21-32) mmol/L Anion Gap (3-11) BUN (6-23) mg/dl Creatinine (0.6-1.2) mg/dl Est Cr Clr Drug Dosing ml/min Est GFR ( Amer) ml/min Est GFR (Non-Af Amer) ml/min BUN/Creatinine Ratio (10-20) Glucose (70-99(Fasting)) mg/dl Calcium (8.6-10.3) mg/dl Phosphorus (2.5-4.9) mg/dl Magnesium (1.7-2.4) mg/dl Total Bilirubin (0.2-1.0) mg/dl AST (13-39) U/L ALT (7-52) U/L Alkaline Phosphatase (34-104) U/L Lactate Dehydrogenase 272 H (86-244) U/L Total Creatine Kinase (26-192) U/L Troponin I High Sens (0-14) pg/ml C-Reactive Protein (0-0.5) mg/dl Total Protein (6.0-8.3) gm/dl Albumin (3.4-5.0) gm/dl Globulin (2.5-4.0) gm/dl Albumin/Globulin Ratio (0.9-2) Procalcitonin < 0.05 (0-0.5) ng/ml TSH (0.300-4.500) uIu/ml Random Cortisol 11.42 mcg/dl Urine Color Urine Appearance (Clear) Urine pH (4.5-7.5) Ur Specific [place] (1.000-1.030) Urine Protein (Negative) Urine Glucose (UA) (Negative) Urine Ketones (Negative) Urine Blood (Negative) Urine Nitrite (Negative) Urine Bilirubin (Negative) Urine Urobilinogen (Negative) Ur Leukocyte Esterase (Negative) Urine WBC (Auto) (0-5) /hpf Urine RBC (Auto) (0-4) /hpf U Hyaline Cast (Auto) (0-5) /lpf U Epithel Cells (Auto) (0-5) /lpf Urine Bacteria (Auto) (Negative) 10/08/22 10/08/22 10/08/22 Range/Units 13:55 13:55 13:55 WBC (4.8-10.8) K/ul RBC (4.20-5.40) M/uL Hgb (12.0-16.0) g/dl Hct (37.0-47.0) % MCV (80.0-100.0) fL MCH (25.0-34.0) pg MCHC (32.0-36.0) g/dL RDW Std Deviation (36.4-46.3) fL RDW Coeff of [place] (11.5-14.5) % Plt Count (130-400) K/uL MPV (9.4-12.4) fL Immature Gran % (Auto) % Neut % (Auto) % Lymph % (Auto) % [place] % (Auto) % Eos % (Auto) % Baso % (Auto) % Neut # (Auto) (1.40-6.50) K/uL Lymph # (Auto) (1.20-3.40) K/uL [place] # (Auto) (0.11-0.59) K/uL Eos # (Auto) (0.00-0.50) K/uL Baso # (Auto) (0.00-0.20) K/uL Immature Gran # (Auto) (0.01-0.20) K/uL ESR 45 H (0-30) mm/hr Sodium 136 (136-145) mmol/L Potassium 3.6 (3.5-5.1) mmol/L Chloride 104 (98-107) mmol/L Carbon Dioxide 24 (21-32) mmol/L Anion Gap 8 (3-11) BUN 19 (6-23) mg/dl Creatinine 0.70 (0.6-1.2) mg/dl Est Cr Clr Drug Dosing 89.2 ml/min Est GFR ( Amer) 103.2 ml/min Est GFR (Non-Af Amer) 89.0 ml/min BUN/Creatinine Ratio 27.1 H (10-20) Glucose 94 (70-99(Fasting)) mg/dl Calcium 10.1 (8.6-10.3) mg/dl Phosphorus 3.2 (2.5-4.9) mg/dl Magnesium 2.4 (1.7-2.4) mg/dl Total Bilirubin 0.7 (0.2-1.0) mg/dl AST 21 (13-39) U/L ALT 35 (7-52) U/L Alkaline Phosphatase 56 (34-104) U/L Lactate Dehydrogenase (86-244) U/L Total Creatine Kinase 25 L (26-192) U/L Troponin I High Sens 3.8 (0-14) pg/ml C-Reactive Protein 1.14 H (0-0.5) mg/dl Total Protein 6.7 (6.0-8.3) gm/dl Albumin 3.5 (3.4-5.0) gm/dl Globulin 3.2 (2.5-4.0) gm/dl Albumin/Globulin Ratio 1.1 (0.9-2) Procalcitonin (0-0.5) ng/ml TSH 2.352 (0.300-4.500) uIu/ml Random Cortisol mcg/dl Urine Color Urine Appearance (Clear) Urine pH (4.5-7.5) Ur Specific [place] (1.000-1.030) Urine Protein (Negative) Urine Glucose (UA) (Negative) Urine Ketones (Negative) Urine Blood (Negative) Urine Nitrite (Negative) Urine Bilirubin (Negative) Urine Urobilinogen (Negative) Ur Leukocyte Esterase (Negative) Urine WBC (Auto) (0-5) /hpf Urine RBC (Auto) (0-4) /hpf U Hyaline Cast (Auto) (0-5) /lpf U Epithel Cells (Auto) (0-5) /lpf Urine Bacteria (Auto) (Negative) 10/08/22 10/08/22 Range/Units 13:55 12:53 WBC 8.57 (4.8-10.8) K/ul RBC 5.26 (4.20-5.40) M/uL Hgb 15.0 (12.0-16.0) g/dl Hct 44.6 (37.0-47.0) % MCV 84.8 (80.0-100.0) fL MCH 28.5 (25.0-34.0) pg MCHC 33.6 (32.0-36.0) g/dL RDW Std Deviation 41.0 (36.4-46.3) fL RDW Coeff of [place] 13.3 (11.5-14.5) % Plt Count 277 (130-400) K/uL MPV 9.9 (9.4-12.4) fL Immature Gran % (Auto) 2.1 % Neut % (Auto) 71.7 % Lymph % (Auto) 17.0 % [place] % (Auto) 8.6 % Eos % (Auto) 0.5 % Baso % (Auto) 0.1 % Neut # (Auto) 6.14 (1.40-6.50) K/uL Lymph # (Auto) 1.46 (1.20-3.40) K/uL [place] # (Auto) 0.74 H (0.11-0.59) K/uL Eos # (Auto) 0.04 (0.00-0.50) K/uL Baso # (Auto) 0.01 (0.00-0.20) K/uL Immature Gran # (Auto) 0.18 (0.01-0.20) K/uL ESR (0-30) mm/hr Sodium (136-145) mmol/L Potassium (3.5-5.1) mmol/L Chloride (98-107) mmol/L Carbon Dioxide (21-32) mmol/L Anion Gap (3-11) BUN (6-23) mg/dl Creatinine (0.6-1.2) mg/dl Est Cr Clr Drug Dosing ml/min Est GFR ( Amer) ml/min Est GFR (Non-Af Amer) ml/min BUN/Creatinine Ratio (10-20) Glucose (70-99(Fasting)) mg/dl Calcium (8.6-10.3) mg/dl Phosphorus (2.5-4.9) mg/dl Magnesium (1.7-2.4) mg/dl Total Bilirubin (0.2-1.0) mg/dl AST (13-39) U/L ALT (7-52) U/L Alkaline Phosphatase (34-104) U/L Lactate Dehydrogenase (86-244) U/L Total Creatine Kinase (26-192) U/L Troponin I High Sens (0-14) pg/ml C-Reactive Protein (0-0.5) mg/dl Total Protein (6.0-8.3) gm/dl Albumin (3.4-5.0) gm/dl Globulin (2.5-4.0) gm/dl Albumin/Globulin Ratio (0.9-2) Procalcitonin (0-0.5) ng/ml TSH (0.300-4.500) uIu/ml Random Cortisol mcg/dl Urine Color Yellow Urine Appearance Cloudy A (Clear) Urine pH 6.5 (4.5-7.5) Ur Specific [place] 1.018 (1.000-1.030) Urine Protein Negative (Negative) Urine Glucose (UA) Negative (Negative) Urine Ketones Negative (Negative) Urine Blood Negative (Negative) Urine Nitrite Negative (Negative) Urine Bilirubin Negative (Negative) Urine Urobilinogen Negative (Negative) Ur Leukocyte Esterase Negative (Negative) Urine WBC (Auto) 1-5 (0-5) /hpf Urine RBC (Auto) 5-10 H (0-4) /hpf U Hyaline Cast (Auto) 0 (0-5) /lpf U Epithel Cells (Auto) >30 H (0-5) /lpf Urine Bacteria (Auto) 2+ H (Negative) PG Care Time/CCT Total # of Minutes Spent Total Time Spent with Patient: Total time spent is greater than 50% in coordination of care (as documented) at patient's floor/unit and/or counseling patient: Coding Diagnoses Generalized weakness R53.1 Hypertension I10 Chronic back pain M54.9; G89.29
[2022-10-09] MEDS ORDERED: METOPROLOL SUCC 25MG EXT REL TAB PO SCH (09:00)
[2022-10-09] MEDS ORDERED: ENOXAPARIN INJ 40 MG/0.4 ML SYR SQ SCH (09:00)
[2022-10-09 09:55] LABS: Hematocrit (blood only) 41.5 % (37.0-47.0); Hemoglobin 14.2 g/dl (12.0-16.0); Mean Corpuscular Hemoglobin 28.7 pg (25.0-34.0); Mean Corpuscular Hgb Conc 34.2 g/dL (32.0-36.0); Mean Corpuscular Volume 83.8 fL (80.0-100.0); Mean Platelet Volume 10.2 fL (9.4-12.4); Platelet Count 222 K/uL (130-400); RDW Coefficient of Variation 13.5 % (11.5-14.5); RDW Standard Deviation 40.8 fL (36.4-46.3); Red Blood Count 4.95 M/uL (4.20-5.40); White Blood Count 9.09 K/ul (4.8-10.8)
[2022-10-09 10:19] LABS: BUN Creatinine Ratio 21.1 (10-20); Calcium 10.2 mg/dl (8.6-10.3); Creatinine Clr Calc Pharmacy 88.7 ml/min; Est GFR (African American) 101.4 ml/min; Est GFR (Non-African American) 87.5 ml/min; Potassium 3.9 mmol/L (3.5-5.1)
[2022-10-09 10:44] LABS: Lyme Ab IgG w/WB Rflx Negative (Negative); Lyme Ab IgM w/WB Rflx Negative (Negative)
--- NOTE | 2022-10-09 11:34 | Discharge Summary ---
Date of Service October 09, 2022 Admission HPI Per Admitting Provider Ximena Lucio is a 67yo female with history of well controlled hypertension and chronic back pain s/p multiple lumbar surgeries. She was recently hospitalized at [facility] from 09/26/22 - 10/01/22 after presenting with severe back pain and foot pain. She was found to have Covid-19 infection during that stay with hypoxia and metabolic encephalopathy. She was treated with Dexamethasone and received 1 dose of Remdesivir during her stay and was discharged home in stable condition on 10/01/22 with a prescription for Dexamethasone. Patient reports finishing her Dexamethasone course. Reports persistent fatigue and generalized weakness. She did have a fall at home on 10/01/22 due to weakness and imbalance - no LOC or head trauma. She has been having a difficult time getting around in her home and performing her ADLs. She has not had much appetite since returning home and has eaten very little. She does report drinking fluids including Ensure, Pedialyte and Gatorade. Otherwise she denies fever, chills, cough, CP, SOB, abdominal pain, nausea, vomiting or diarrhea. No rashes or joint pain. No additional complaints. In the ER she is afebrile, HD stable and non-toxic in appearance. Admission Exam Per Admitting Provider General: patient resting comfortably, NAD, non-toxic in appearance, AA&O x 4 Skin: warm, dry, intact, no rashes or lesions HEENT: NC/AT, PERRL, EOMI, anicteric sclera, conjunctiva without injection, external ear normal to inspection and nontender, nares patent, moist mucus membranes, dentition intact, no oropharyngeal lesions, neck supple, trachea midline, no LAD, no thyromegaly, no JVD Heart: +S1/S2, regular, no m/r/g Lungs: equal air entry bilaterally, no rales/rhonchi/wheezes Abd: +BS, soft, NT/ND, no masses/organomegaly/ascites Ext: warm, 2+ pulses in UE/LE bilaterally, no clubbing/cyanosis or edema Neuro: nonfocal, patient AA&O x 4, speech intact, no facial droop, moving all extremities on command with equal strength 5/5 Principal Diagnosis Weakness, Deconditioning Discharge Exam General: WN/WN female sitting up in bed, demanding to go home and not wanting to wait for therapy evaluations HEENT: head normocephalic, atraumatic, mmm, trachea midline Resp: CTA, no w/c/r, on room air CV:RRR, no significant m/r/g, no calf tenderness GI: +BS, soft/NT no gordillo MSK/Neuro: no focal deficits, no slurred speech, able to follow commands, strength intact bilaterally Psych: AOx3 Discharge Data Allergies Allergy/AdvReac Type Severity Reaction Status Date / Time oxycodone [From Percocet] AdvReac Mild Nausea Verified 09/26/22 13:54 Consultations 10/08/22 19:36 ED Decision to Admit Stat Ordered Studies Chest X-Ray 10/08/22 13:33 XR chest 1V portable CLINICAL HISTORY: weakness; COVID COMPARISON STUDY: Chest radiograph September 30, 2022. FINDINGS: Intracanalicular electrodes are incidentally noted. There is no pneumothorax or pleural effusion. Multifocal right lung airspace opacities have mildly progressed. Minimal left basilar opacity is present. No evidence for pulmonary edema. Cardiac size is normal. Mediastinal contours are normal. IMPRESSION: Progression of multifocal airspace opacities within the right lung suggestive of pneumonia. ACT 112: Negative or not required by law. Electronically signed by: Vijay Greene M.D. 10/08/2022 1:[address] 10/08/22 18:01 CT OF THE HEAD WITHOUT CONTRAST CLINICAL HISTORY: Generalized weakness. Recent fall. COMPARISON STUDY: No previous studies for comparison. CT DOSE: 625.80 mGy.cm TECHNIQUE: Helical axial images of the head were obtained without IV contrast. Automated exposure control was utilized for the study. A dose lowering technique was utilized adhering to the principles of ALARA. FINDINGS: No acute intracranial hemorrhage, midline shift or mass effect is present. The ventricular system is unremarkable. The basal cisterns are patent. No extra-axial collections are present. There are no findings to suggest acute dural sinus thrombosis or acute territorial infarct. No significant calvarial abnormalities are present. Visualized portions of the sinuses and mastoid air cells are clear. IMPRESSION: 1. No acute intracranial findings. 2. No acute calvarial fracture. ACT 112: Negative or not required by law. Electronically signed by: Vijay Greene M.D. 10/08/2022 6:51 PM Hospital Course (1) Generalized weakness: 67yo female with history of well controlled HTN and chronic back pain with spinal cord stimulator in place presenting from home with persistent generalized weakness and fatigue. Patient was recently hospitalized from 09/26 - 10/01 with severe back pain. She was found to have Covid-19 infection at that time with hypoxia. She was treated with Dexamethasone and received 1 dose of Remdesivir. No additional complaints. Her vital signs are within normal range and her lab work including electrolytes, renal function, hepatic panel and CBC are pristine. CT of the head is normal. She does have progression of multifocal airspace opacities in the right lung suggestive of PNA noted on her CXR but does not endorse active pulmonary symptoms. Uncertain why she has persistent weakness and fatigue. Likely some post-Covid symptoms as well as deconditioning from her recent hospitalization. The progression of her pulmonary opacities as read on CXR is somewhat concerning, however. Procal negative however, not reporting any cough/sputum production/fevers either. CK not elevated. LDH marginal However, repeat exam AM 10/09, patient demanding to go home. Wanting to eat regular foods, afebrile, no hypoxia/wheezing/rales/crackles on exam, remains on room air. Encouraged continued use incentive spirometer at d/c and monitoring for symptoms given not wanting to remain inpatient. UA w/ epi + bacteria, 5-10 RBC. CK 25, not elevated. Can f/u PCP for further eval if still noting RBC on repeat UA. Cx pending but denied urinary symptoms and again wanting to go home. Can f/u cx at d/c w/ PCP Last admit PT rec home with home health therapy which was recorded as declined however patient reports she does have them coming in 2-3x/week at present and will continue Seen by supervising provider. Had been ambulating in the room without issue. Stable for dc w/ close f/u PCP and monitoring of any worsening symptoms to return to ER (2) Hypertension: WEll controlled, remained on metoprolol BP 121/76 (3) Chronic back pain: Chronic. Stable and improved from last hospital admission. Patient reports that she does not take medications at this time for her back pain No issues reported today Plan discharged home w/ friend Total Time Total Time Spent Total Time Spent (In Minutes): 35 Discharge Plan Discharge Items Patient Disposition: Home - Self-Care Reason For Visit: WEAKNESS Discharge Diagnosis: Weakness, Deconditioning Goals: You have been hospitalized for an acute medical problem. During your stay at [facility], we have made an effort to correct the problem that brought you to the hospital while keeping you as comfortable as possible. Medications were used to bring your condition under control and your discharge instructions will include directions for any medications you should take after leaving the hospital. Please make sure you see your Primary Care Provider as part of your follow up plan. Activity: As commented below Activity Comment: continue home health therapy Non-emergency contact: Primary Care Provider Call non-emergency contact if: you have any medication questions and you have a fever Follow-up/Referrals: Uday Schrader MD [Primary Care Provider] - Diet: Regular Addtl Attending Provider Instructions: You have been hospitalized for weakness. Imaging showed concerns for viral pneumonia but no clear evidence for bacteria pneumonia. Your urine didn't look overly infected and you did not want to wait for therapy evaluations and should continue home health therapy as already arranged. Please continue to monitor your breathing and use incentive spirometer. Please call primary care or return to the ER with any worsening breathing/shortness of breath or fevers. Please continue to stay well hydrated at home. Follow up with primary care in the next week. Pending Studies at Discharge: Yes Studies:: urine culture Stand-Alone Forms: My [facility], Smoking Cessation Medications and DC Order Prescriptions: Continued cyclobenzaprine 10 mg tablet 10 mg PO TID PRN (Reason: muscle spasm) Qty: 20 0RF hydrocodone-acetaminophen 5-325 mg tablet 1 - 2 tab PO Q6H PRN (Reason: pain) Qty: 15 0RF Rx Instructions: Initial Treatment lorazepam 0.5 mg tablet 0.5 mg PO DAILY PRN (Reason: ANXIETY) metoprolol succinate 25 mg tablet extended release 24 hr 25 mg PO DAILY gabapentin 300 mg capsule 300 mg PO UD Discontinued dexamethasone 6 mg tablet 6 mg PO DAILY Qty: 7 0RF Discharge Orders: Discharge Order (Routine); Ordered 10/09/22 Ordered By: Lucy London Admission Data Admit Date/Time: 10/08/22 19:52 Attending Provider: Horacio Espino Admit Provider: Rdaha Waggoner Primary Care Provider: Uday Schrader Other Providers: Radha Waggoner Other Interventions: Discharge Summary Assessment (RN) Last Done: 10/09/22 11:36 Supervising Physician Co-Signing Physician Notes The patient was seen by me. The chart was reviewed. Case discussed with EDWIN Rai. Agree with assessment and plan. She will be discharged home today, October 09 Coding Level of Care Code 28996 INP/OBS DISCH >30 MIN Diagnoses Generalized weakness R53.1 Hypertension I10 Chronic back pain M54.9; G89.29
== END 2022-10-09 12:05 | disposition home or self-care (01) ==
LOC: ED 12:45 → 3W 12:45 → SUATTDRO 19:52 → 3W 21:26